=== PATIENT | male | born 1990 | race Caucasian/White ===

== ENCOUNTER 2023-09-30 20:56 | Inpatient (IN) | payer OTHER, SELFPAY ==
[2023-09-30 21:41] VITALS: BMI 47.1
[2023-09-30 21:43] VITALS: BP 162/104; PULSE 91; RESP 18; TEMP 36.7; O2SAT 98
[2023-09-30] MEDS: traZODone HCL 50 MG TABLET PO (22:43)
[2023-09-30] MEDS: Nicotine Polacrilex 2 MG GUM 4 MG BUCCAL (22:43)
--- NOTE | 2023-10-01 00:59 | PC.ADMIT ---
Patient is a 33 y.o. homeless male with a history of Schizophrenia, bipolar disorder, polysubstance abuse, hepatitis C and Htn. who presents to [facility] from [facility] for reported and recorded SI. Patient signed a CV with stated difficulty due to right hand pain which he showed RN. Right hand/knuckles are slightly swollen and bruised. Patient requesting a medic. Patient declined to state what happened to his hand but denies restraints. Patient was cooperative with weight, skin check, and vitals but as soon as RN asked a question about why he was here and if he is feeling suicidal he stated I lied, its all bullshit, im not suicidal . He states he lied so that he could come here and get sober living services. thats all I want . RN asked the patient about his living situation and family and patient states I dont want to be your friend, and I dont want to talk about anything else so lets just get on with it . Everything you need to know is in my chart . Patient declined to sign an releases for care. RN acclimated patient to unit and made sure patient was safe. RN was waiting for patient to fill out his menu and patient stopped half way through and states, I cant be around you and walked away. Looking through what medical records we have, they are consistent with his presentation. Very guarded, irritable, odd behavior. In the ED at [facility] patient was given Haldol, Ativan, and Benedryl IM due to agitation, ongoing resistance, and threatening behavior. Patient showered and is currently in his room and has not expressed any anger or violence on the unit. Sleep aid and nicotine replacement were ordered and administered. Will continue to monitor changes in behaviors and sleep pattern and will continue care with Behavioral health team in the morning.
[2023-10-01 08:00] VITALS: BP 121/78; PULSE 89; RESP 18; TEMP 36.3; O2SAT 97
[2023-10-01] MEDS: Multivitamin TABLET 1 TAB PO (08:37)
[2023-10-01] MEDS: Thiamine HCL 100 MG TABLET PO (08:37)
[2023-10-01] MEDS: Acetaminophen 325 MG TABLET 650 MG PO (08:37)
[2023-10-01] MEDS: Folic Acid 1 MG TABLET PO (08:37)
[2023-10-01] MEDS: LORazepam 1 MG TABLET PO (09:00)
--- NOTE | 2023-10-01 10:32 | P.HPPS_ITS ---
HPI Date of Service: 10/01/23 Chief Complaint: SI Sources of Information: patient interviewed, chart reviewed and crisis/core team assessment reviewed HPI Subjective Notes: Wheat Warning and Conditional Voluntary Narrative: Patient is a 33-year-old male with report of history of schizoaffective disorder cocaine opiate use disorder, possibly hep C, who presents after having made suicidal comment to peers saying he was going to jump off a parking garage; crisis note reports patient was endorsing auditory hallucinations that were telling him to harm himself and that he himself said he was suicidal; also reports that he endorsed suicide attempt a few weeks. Patient however denies this report. He says... I was having a conversation with some people, I was fucked up, I was in a bad spot and I said some fucked up things... I said lalo cidal stuff But it was just bullshit... Patient is not uncooperative however keeps the conversation to short answers. He denies that he is in any way suicidal. He denies any auditory hallucinations saying that he had them a long time ago only. Denies depression or anxiety and does not feel a need for medication. Says he struggles with heroin/fentanyl and cocaine use which he uses daily and wants help getting into a program and then sober housing. He does not want methadone or Suboxone or any other MH E. Patient said he was on Invega and Seroquel in the past but refuses it now saying he does not need it. He does agree to continue with Zyprexa which was started on admission. Past Psychiatric History: Patient reports past psychiatric hospitalizations, most recently a few weeks ago Crisis/ED reports past suicide attempt a few weeks ago History reports diagnosis of schizoaffective disorder/bipolar type however patient says this was long time ago and no longer has that diagnosis Medical Evaluation Reviewed: Hospitalist Renata Pending Reviewed labs from sending facility: Lytes, BUN/creatinine, LFTs WNL CBC grossly WNL with mild leukocytosis anemia UA unremarkable UDS positive for fentanyl and cannabis [facility] Medical History (Updated 10/01/23 @ 17:26 by William Becker MD) Cocaine use disorder Opioid use disorder Psychosis No known health problems No known health problems Surgical History No history of previous surgery Family History: Patient says he does not know Social History: Homeless for a few years; denies community support Substance History: Daily heroin/fentanyl and cocaine abuse; endorses history LSD; denies drinking alcohol daily, says only once in a while, most recently the night before this admission Trauma History: Deferred Diagnostics Vital Signs (24Hr): Vital Signs - 24 hr 09/30/23 21:43 10/01/23 08:00 Temperature 98.0 F 97.3 F Pulse Rate 91 89 Respiratory Rate 18 18 Blood Pressure 162/104 H 121/78 Pulse Oximetry 98 97 Oxygen Delivery Method Room Air Room Air BMI result Body Mass Index 47.1 Meds/Allergies Meds Home Medications Medication Instructions Recorded Confirmed Type Atarax 50 mg PO 09/30/23 History Desyrel 50 mg PO 09/30/23 History Lamictal 25 mg PO 09/30/23 History Wellbutrin SR 09/30/23 History Zyprexa 09/30/23 09/30/23 History benztropine 0.5 mg tablet 0.5 mg PO BID 09/30/23 History bupropion HCl 150 mg tablet,12 hr 150 mg PO QAM anxiety 09/30/23 History sustained-release ibuprofen 600 mg PO 09/30/23 History paliperidone 6 mg PO 09/30/23 History quetiapine 200 mg PO 09/30/23 History risperidone 3 mg PO 09/30/23 History Allergies Allergies Allergy/AdvReac Type Severity Reaction Status Date / Time azithromycin Allergy Unknown Verified 09/30/23 21:37 sulfamethoxazole Allergy Unknown Verified 09/30/23 21:39 [From Bactrim] trimethoprim [From Bactrim] Allergy Unknown Verified 09/30/23 21:39 Mental Status Exam Mental Status Exam Narrative: Pt is alert and oriented; behavior is cooperative and calm though little guarded; patient is not in distress; dressed in casual attire, obese, unkempt; mood is described as good and affect congruent; eye contact appropriate; Speech is normal rate, volume and prosody and not pressured; no psychomotor agitation/retardation present; thought process is organized and goal directed; Thought content is on aftercare; otherwise pertinent to relevant topics; no delusional thinking expressed; denies any SI/HI. Denies AVH and currently There is no evidence of perceptual disturbance. Patients insight and judgment impaired Assessment & Plan Assessment & Plan (1) Psychosis: Status: Acute Code(s): F29 - Unspecified psychosis not due to a substance or known physiological condition (2) Opioid use disorder: Status: Acute Code(s): F11.90 - Opioid use, unspecified, uncomplicated (3) Cocaine use disorder: Status: Acute Code(s): F14.10 - Cocaine abuse, uncomplicated Plan Patient is a 33-year-old male with report of history of schizoaffective disorder cocaine opiate use disorder, possibly hep C, who presents after having made suicidal comment to peers saying he was going to jump off a parking garage; crisis note reports patient was endorsing auditory hallucinations that were telling him to harm himself and that he himself said he was suicidal; also reports that he endorsed suicide attempt a few weeks. Patient however denies this report. He says... I was having a conversation with some people, I was fucked up, I was in a bad spot and I said some fucked up things... I said suicidal stuff But it was just bullshit... Patient is not uncooperative however keeps the conversation to short answers. He denies that he is in any way suicidal. He denies any auditory hallucinations saying that he had them a long time ago only. Denies depression or anxiety and does not feel a need for medication. Says he struggles with heroin/fentanyl and cocaine use which he uses daily and wants help getting into a program and then sober housing. He does not want methadone or Suboxone or any other MH E. Patient said he was on Invega and Seroquel in the past but refuses it now saying he does not need it. He does agree to continue with Zyprexa which was started on admission. Impression: Patient is a limited historian as his report to this senior grant writer is different than to crisis/ED staff where he reported AH and SI. That said, patient was also reportedly under the influence of opiates. ED report indicates history of schizoaffective disorder and has been prescribed Invega, Seroquel and Zyprexa; s taff called to pharmacy and patient no recent history of picking up any medication. At any rate he currently denies any AVH, SI depression or anxiety. He wants to get into a program for substance abuse and emphasizes his goal is sober housing. Currently agrees to remain on Zyprexa which was started on admission. -will monitor; if patient has a psychotic illness symptoms will likely emerge (unless Zyprexa 10 mg q.h.s. is sufficient) Plan: CV Q 15 minute checks Continue Zyprexa 10 mg q.h.s. Seek collateral Patient educated on: diagnosis, medication risk/benefits and substance abuse Informed Consent: understands Reason for continued inpatient stay Substantial Risk for: rapid decompensation Statement Statement: I have reviewed the history and physical and performed a pertinent examination on my patient. No changes have occurred unless specified. If the History and Physical was not performed prior to admission, the Hospitalist's service will be consulted for completing the admission phys ical. Time Spent With Patient Time: Total time managing care of this patient today ____ minutes.
[2023-10-01] MEDS: hydrOXYzine HCL 25 MG TABLET PO (13:48)
[2023-10-01] MEDS: Nicotine Polacrilex 2 MG GUM 4 MG BUCCAL (13:51)
--- NOTE | 2023-10-01 13:56 | HO.PM.IMCN ---
History of Present Illness Data of Consult Service Date: 10/01/23 Primary Care Provider: Nonstaff Physician HPI Reason for consult: Admission H&P Pt is a 33-year-old male with a PMH significant for?polysubstance use disorder and schizoaffective disorder who is admitted to [facility] psychiatry unit for increasing depression with SI with plan to jump off a parking garage. Apparently patient reported auditory hallucinations that were telling him to harm himself. Medical consult for admission H&P. ?Patient has no acute medical complaints at this time. States he's ?fine, fine, everything's fine?. Denies chest pain/pressure, palpitations. No shortness of breath. Denies fever, chills, nausea, vomiting, abdominal pain. No headache, acute vision changes. No changes to bowel bladder habits. Review of Systems Review of Systems: Patient has no acute medical complaints at this time [facility] Medical History No known health problems No known health problems Surgical History No history of previous surgery Social History Household Members: Unknown / Unable to assess Housing: Homeless Do you presently have visiting nurse or other home services: No Patient Tobacco Use Status: Current everyday Tobacco user Tobacco use type: Cigarette Smoked in Last 30 Days: Yes e-Cigarette/Vaping Use: Never Used Patient Interested in Nicotine Replacement: Yes Patient Given Instructions on How to Stop Smoking: Yes Date Education Initiated: 09/30/23 Second Hand Smoke Exposure: No Use of substances other than those prescribed or required for medical reasons: Refusing to respond Substance Use Type: Hallucinogens, Marijuana and Opiates Currently Displaying Signs/Symptoms of Drug Intoxication Withdrawal: No Spiritual Healthcare Practices: unknown Taoist Healthcare Practices: unknown Cultural Healthcare Practices: unknown Advance Directives: No Advance Directives Information Provided: No Do you have thoughts of harming others: None Do you have a plan to hurt others: No Plan Recently lost weight without trying: No How much weight loss: Unsure Eating poorly because of decreased appetite: No Nutrition screen score: 2 Nutrition Risks: No Nutritional Risk Poor oral hygiene: No Meds Allergies Allergy/AdvReac Type Severity Reaction Status Date / Time azithromycin Allergy Unknown Verified 09/30/23 21:37 sulfamethoxazole Allergy Unknown Verified 09/30/23 21:39 [From Bactrim] trimethoprim [From Bactrim] Allergy Unknown Verified 09/30/23 21:39 Active Medications: Current Medications Acetaminophen (Acetaminophen 325 Mg Tablet) 650 mg PO Q6H PRN PRN Reason: Headache/Pain Mild Scale (1-3) Last Admin: 10/01/23 08:37 Dose: 650 mg Al Hydroxide/Mg Hydroxide (Magnesium Hydrox/Alum Hydrox 30 Ml Oral.Susp) 30 ml PO Q6H PRN PRN Reason: Heartburn/Nausea Folic Acid (Folic Acid 1 Mg Tablet) 1 mg PO DAILY [facility] Last Admin: 10/01/23 08:37 Dose: 1 mg Hydroxyzine HCl (Hydroxyzine Hcl 25 Mg Tablet) 25 mg PO Q6H PRN PRN Reason: Anxiety Last Admin: 10/01/23 13:48 Dose: 25 mg Lorazepam (Lorazepam 1 Mg Tablet) 1 mg PO Q2H PRN PRN Reason: CIWA 6-10 Last Admin: 10/01/23 09:00 Dose: 1 mg Lorazepam (Lorazepam 1 Mg Tablet) 2 mg PO Q2H PRN PRN Reason: CIWA 11 and above Magnesium Hydroxide (Milk Of Magnesia 30 Ml Oral.Susp) 30 ml PO DAILY PRN PRN Reason: Constipation Multivitamins/Vitamin C (Multivitamin Tablet) 1 tab PO DAILY [facility] Last Admin: 10/01/23 08:37 Dose: 1 tab Nicotine (Nicotine 21 Mg Patch.Td24) 21 mg TRANSDERMA DAILY PRN PRN Reason: smoking cessation Nicotine Polacrilex (Nicotine Polacrilex 2 Mg Gum) 4 mg BUCCAL Q2H PRN PRN Reason: Nicotine Cravings Last Admin: 10/01/23 13:51 Dose: 4 mg Olanzapine (Olanzapine 5 Mg Tablet) 5 mg PO TID PRN PRN Reason: agitation Olanzapine (Olanzapine 10 Mg Tablet) 10 mg PO BEDTIME [facility] Last Admin: 10/01/23 05:26 Dose: Not Given Thiamine HCl (Thiamine Hcl 100 Mg Tablet) 100 mg PO DAILY [facility] Last Admin: 10/01/23 08:37 Dose: 100 mg Trazodone HCl (Trazodone Hcl 50 Mg Tablet) 50 mg PO BEDTIME MRX1 PRN PRN Reason: Insomnia Last Admin: 09/30/23 22:43 Dose: 50 mg Home Medications Medication Instructions Recorded Confirmed Last Taken Type Atarax 50 mg PO 09/30/23 Unknown History Desyrel 50 mg PO 09/30/23 Unknown History Lamictal 25 mg PO 09/30/23 Unknown History Wellbutrin SR 09/30/23 Unknown History Zyprexa 09/30/23 09/30/23 Unknown History benztropine 0.5 mg tablet 0.5 mg PO BID 09/30/23 Unknown History bupropion HCl 150 mg tablet,12 hr 150 mg PO QAM anxiety 09/30/23 Unknown History sustained-release ibuprofen 600 mg PO 09/30/23 Unknown History paliperidone 6 mg PO 09/30/23 Unknown History quetiapine 200 mg PO 09/30/23 Unknown History risperidone 3 mg PO 09/30/23 Unknown History Physical Exam Vital Signs and Narrative: Vital Signs: Last Vital Signs Temp 97.3 F 10/01/23 08:00 Pulse 89 10/01/23 08:00 Resp 18 10/01/23 08:00 BP 121/78 10/01/23 08:00 Pulse Ox 97 10/01/23 08:00 O2 Del Method Room Air 10/01/23 08:00 BMI result Body Mass Index 47.1 General: AOx3, no acute distress Resp: CTA bilaterally CVS: S1, S2, RRR GI: +BS, NT, no distention Skin: Warm, dry Neuro: Cranial nerves II-XII grossly intact bilaterally. Motor grossly intact bilaterally Extremities: No edema Psych: Appropriate affect Assessment and Plan (1) Medical clearance for psychiatric admission: Status: Acute Plan Pt is a 33-year-old male with a PMH significant for?polysubstance use disorder and schizoaffective disorder who is admitted to [facility] psychiatry unit for increasing depression with SI with plan to jump off a parking garage. Apparently patient reported auditory hallucinations that were telling him to harm himself. Medical consult for admission H&P. ?Patient has no acute medical complaints at this time. Mood disorder Plan as per Psychiatry Patient reports no acute medical complaints or chronic medical conditions. Thank you for allowing us to participate in the care of this patient. Signing off at this time. Please re-consult if any acute complaints or issues arise.
[2023-10-01 18:00] VITALS: RESP 18
[2023-10-01] MEDS: traZODone HCL 50 MG TABLET PO (20:26)
[2023-10-01] MEDS: OLANZapine 10 MG TABLET PO (20:26)
[2023-10-02 08:00] VITALS: RESP 18
[2023-10-02] MEDS: Folic Acid 1 MG TABLET PO (09:13)
[2023-10-02] MEDS: Multivitamin TABLET 1 TAB PO (09:13)
[2023-10-02] MEDS: hydrOXYzine HCL 25 MG TABLET PO ×2 (09:13→21:05)
[2023-10-02] MEDS: OLANZapine 5 MG TABLET PO (09:13)
[2023-10-02] MEDS: Thiamine HCL 100 MG TABLET PO (09:13)
--- NOTE | 2023-10-02 11:04 | P.PNPSI_ITS ---
Subjective Subjective Date of Service: 10/02/23 Reason For Visit: SI Interim History: met with patient; discussed with team Patient remains isolated, mostly in bed; overall friendly and polite on approach however remains superficial. Denies all psychiatric symptoms, no depression, anxiety, auditory hallucinations or SI. Black Topper asked about emergency room note that recorded patient saying auditory hallucinations were telling him to hurt himself. Patient says no that has not true at all that has a lie... Mental Status Exam Mental Status Exam Narrative: Pt is alert and oriented; behavior is superficially cooperative; calm, polite; remains a little guarded; patient is not in distress; dressed in casual attire, obese, unkempt; mood is described as good and affect congruent; eye contact appropriate; Speech is normal rate, volume and prosody and not pressured; no psychomotor agitation/retardation present; thought process is organized and goal directed; Thought content is on aftercare; otherwise pertinent to relevant topics; no delusional thinking expressed; denies any SI/HI. Denies AVH and currently There is no evidence of perceptual disturbance. Patients insight and judgment impaired Diagnostics Vital Signs (24Hr): Vital Signs - 24 hr 10/01/23 18:00 10/02/23 08:00 Respiratory Rate 18 18 BMI result Body Mass Index 47.1 Medications Medications Current Medications Acetaminophen (Acetaminophen 325 Mg Tablet) 650 mg PO Q6H PRN PRN Reason: Headache/Pain Mild Scale (1-3) Last Admin: 10/01/23 08:37 Dose: 650 mg Al Hydroxide/Mg Hydroxide (Magnesium Hydrox/Alum Hydrox 30 Ml Oral.Susp) 30 ml PO Q6H PRN PRN Reason: Heartburn/Nausea Folic Acid (Folic Acid 1 Mg Tablet) 1 mg PO DAILY [facility] Last Admin: 10/02/23 09:13 Dose: 1 mg Hydroxyzine HCl (Hydroxyzine Hcl 25 Mg Tablet) 25 mg PO Q6H PRN PRN Reason: Anxiety Last Admin: 10/02/23 09:13 Dose: 25 mg Magnesium Hydroxide (Milk Of Magnesia 30 Ml Oral.Susp) 30 ml PO DAILY PRN PRN Reason: Constipation Multivitamins/Vitamin C (Multivitamin Tablet) 1 tab PO DAILY [facility] Last Admin: 10/02/23 09:13 Dose: 1 tab Nicotine (Nicotine 21 Mg Patch.Td24) 21 mg TRANSDERMA DAILY PRN PRN Reason: smoking cessation Nicotine Polacrilex (Nicotine Polacrilex 2 Mg Gum) 4 mg BUCCAL Q2H PRN PRN Reason: Nicotine Cravings Last Admin: 10/01/23 13:51 Dose: 4 mg Olanzapine (Olanzapine 5 Mg Tablet) 5 mg PO TID PRN PRN Reason: agitation Last Admin: 10/02/23 09:13 Dose: 5 mg Olanzapine (Olanzapine 10 Mg Tablet) 10 mg PO BEDTIME [facility] Last Admin: 10/01/23 20:26 Dose: 10 mg Thiamine HCl (Thiamine Hcl 100 Mg Tablet) 100 mg PO DAILY [facility] Last Admin: 10/02/23 09:13 Dose: 100 mg Trazodone HCl (Trazodone Hcl 50 Mg Tablet) 50 mg PO BEDTIME MRX1 PRN PRN Reason: Insomnia Last Admin: 10/01/23 20:26 Dose: 50 mg Allergies Allergies Allergy/AdvReac Type Severity Reaction Status Date / Time azithromycin Allergy Unknown Verified 09/30/23 21:37 sulfamethoxazole Allergy Unknown Verified 09/30/23 21:39 [From Bactrim] trimethoprim [From Bactrim] Allergy Unknown Verified 09/30/23 21:39 Assessment & Plan Assessment & Plan (1) Psychosis: Status: Acute Code(s): F29 - Unspecified psychosis not due to a substance or known physiological condition (2) Opioid use disorder: Status: Acute Code(s): F11.90 - Opioid use, unspecified, uncomplicated (3) Cocaine use disorder: Status: Acute Code(s): F14.10 - Cocaine abuse, uncomplicated Plan Patient is a 33-year-old male with report of history of schizoaffective disorder cocaine opiate use disorder, possibly hep C, who presents after having made suicidal comment to peers saying he was going to jump off a parking garage; crisis note reports patient was endorsing auditory hallucinations that were telling him to harm himself and that he himself said he was suicidal; also reports that he endorsed suicide attempt a few weeks. Patient however denies this report. He says... I was having a conversation with some people, I was fucked up, I was in a bad spot and I said some fucked up things... I said suicidal stuff But it was just bullshit... Patient is not uncooperative however keeps the conversation to short answers. He denies that he is in any way suicidal. He denies any auditory hallucinations saying that he had them a long time ago only. Denies depression or anxiety and does not feel a need for medication. Says he struggles with heroin/fentanyl and cocaine use which he uses daily and wants help getting into a program and then sober housing. He does not want methadone or Suboxone or any other MH E. Patient said he was on Invega and Seroquel in the past but refuses it now saying he does not need it. He does agree to continue with Zyprexa which was started on admission. Impression: Patient is a limited historian as his report to this script writer is different than to crisis/ED staff where he reported AH and SI. That said, patient was also reportedly under the influence of opiates. ED report indicates history of schizoaffective disorder and has been prescribed Invega, Seroquel and Zyprexa; staff called to pharmacy and patient no recent history of picking up any medication. At any rate he currently denies any AVH, SI depression or anxiety. He wants to get into a program for substance abuse and emphasizes his goal is sober housing. Currently agrees to remain on Zyprexa which was started on admission. -will monitor; if patient has a psychotic illness symptoms will likely emerge (unless Zyprexa 10 mg q.h.s. is sufficient) Hospital course: 10/01 Patient remains isolated, mostly in bed; overall friendly and polite on approach however remains superficial. Denies all psychiatric symptoms, no depression, anxiety, auditory hallucinations or SI. Black Topper asked about emergency room note that recorded patient saying auditory hallucinations were telling him to hurt himself. Patient says no that has not true at all that has a lie... -taking Zyprexa 10 mg q.h.s. -he expresses gratitude for help getting into a substance abuse program and looks forward to talking with social work tomorrow Plan: CV Q 15 minute checks Continue Zyprexa 10 mg q.h.s. Seek collateral Patient educated on: diagnosis, medication risk/benefits, substance abuse and therapeutic strategies Informed Consent: understands, does not understand and further education needed Reason for continued inpatient stay Substantial Risk for: rapid decompensation Time Spent With Patient Time: Total time managing care of this patient today ____ minutes.
[2023-10-02] MEDS: traZODone HCL 50 MG TABLET PO (21:05)
[2023-10-02] MEDS: OLANZapine 10 MG TABLET PO (21:05)
[2023-10-03 08:30] VITALS: RESP 18
[2023-10-03] MEDS: Folic Acid 1 MG TABLET PO (08:50)
[2023-10-03] MEDS: Thiamine HCL 100 MG TABLET PO (08:50)
[2023-10-03] MEDS: Multivitamin TABLET 1 TAB PO (08:50)
--- NOTE | 2023-10-03 11:30 | P.PNPSI_ITS ---
Subjective Subjective Date of Service: 10/03/23 Reason For Visit: SI Subjective Notes: Conditional Voluntary Interim History: Reviewed with Dr. Barkley. Pt reports feeling okay today; pt stated, I was on drugs and said some messed up shit. I'm not suicidal. I'm open to go to a substance abuse program but I want to go back to [place] . In team, staff reported pt making a comment last evening regarding concerns of someone touching his testicle . T/W asked patient regarding this statement; pt stated, I'm a spiritual person. I felt something touch my testicle so I thought it was an Alien, not a ghost. I believe in Aliens . pt denies SI/HI/VH/AH. Medication Compliance: Yes Side effects from medications: No Attending Groups: No Review of Systems Constitutional: Reports as per HPI Eyes: Reports as per HPI Reports as per HPI Cardiovascular: Denies as per HPI Respiratory: Reports as per HPI Gastrointestinal: Reports as per HPI Genitourinary: Reports as per HPI Musculoskeletal: Reports as per HPI Skin/Breast: Reports as per HPI Reports as per HPI Psychiatric: Reports as per HPI Endocrine: Reports as per HPI Hematologic/Lymphatic: Reports as per HPI Allergic/Immunologic: Reports as per HPI Mental Status Exam Mental Status Exam Narrative: Pt is alert and oriented; behavior is calm; dressed in casual attire; mood is described as okay ; eye contact appropriate; Speech is normal rate, volume and prosody and not pressured; thought process is goal directed; Thought content is on tx; Pt believes Alien was touching him last evening ; denies SI/HI/VH/AH. Diagnostics Vital Signs (24Hr): Vital Signs - 24 hr 10/03/23 08:30 Respiratory Rate 18 BMI result Body Mass Index 47.1 Medications Medications Current Medications Acetaminophen (Acetaminophen 325 Mg Tablet) 650 mg PO Q6H PRN PRN Reason: Headache/Pain Mild Scale (1-3) Last Admin: 10/01/23 08:37 Dose: 650 mg Al Hydroxide/Mg Hydroxide (Magnesium Hydrox/Alum Hydrox 30 Ml Oral.Susp) 30 ml PO Q6H PRN PRN Reason: Heartburn/Nausea Folic Acid (Folic Acid 1 Mg Tablet) 1 mg PO DAILY ROSMERY Last Admin: 10/03/23 08:50 Dose: 1 mg Hydroxyzine HCl (Hydroxyzine Hcl 25 Mg Tablet) 25 mg PO Q6H PRN PRN Reason: Anxiety Last Admin: 10/02/23 21:05 Dose: 25 mg Magnesium Hydroxide (Milk Of Magnesia 30 Ml Oral.Susp) 30 ml PO DAILY PRN PRN Reason: Constipation Multivitamins/Vitamin C (Multivitamin Tablet) 1 tab PO DAILY [facility] Last Admin: 10/03/23 08:50 Dose: 1 tab Nicotine (Nicotine 21 Mg Patch.Td24) 21 mg TRANSDERMA DAILY PRN PRN Reason: smoking cessation Nicotine Polacrilex (Nicotine Polacrilex 2 Mg Gum) 4 mg BUCCAL Q2H PRN PRN Reason: Nicotine Cravings Last Admin: 10/01/23 13:51 Dose: 4 mg Olanzapine (Olanzapine 5 Mg Tablet) 5 mg PO TID PRN PRN Reason: agitation Last Admin: 10/02/23 09:13 Dose: 5 mg Olanzapine (Olanzapine 10 Mg Tablet) 10 mg PO BEDTIME ROSMERY Last Admin: 10/02/23 21:05 Dose: 10 mg Thiamine HCl (Thiamine Hcl 100 Mg Tablet) 100 mg PO DAILY [facility] Last Admin: 10/03/23 08:50 Dose: 100 mg Trazodone HCl (Trazodone Hcl 50 Mg Tablet) 50 mg PO BEDTIME MRX1 PRN PRN Reason: Insomnia Last Admin: 10/02/23 21:05 Dose: 50 mg Allergies Allergies Allergy/AdvReac Type Severity Reaction Status Date / Time azithromycin Allergy Unknown Verified 09/30/23 21:37 sulfamethoxazole Allergy Unknown Verified 09/30/23 21:39 [From Bactrim] trimethoprim [From Bactrim] Allergy Unknown Verified 09/30/23 21:39 Assessment & Plan Assessment & Plan (1) Psychosis: Status: Acute Code(s): F29 - Unspecified psychosis not due to a substance or known physiological condition (2) Opioid use disorder: Status: Acute Code(s): F11.90 - Opioid use, unspecified, uncomplicated (3) Cocaine use disorder: Status: Acute Code(s): F14.10 - Cocaine abuse, uncomplicated Plan Patient is a 33-year-old male with report of history of schizoaffective disorder cocaine opiate use disorder, possibly hep C, who presents after having made suicidal comment to peers saying he was going to jump off a parking garage; crisis note reports patient was endorsing auditory hallucinations that were telling him to harm himself and that he himself said he was suicidal; also reports that he endorsed suicide attempt a few weeks. Patient however denies this report. He says... I was having a conversation with some people, I was fucked up, I was in a bad spot and I said some fucked up things... I said suicidal stuff But it was just bullshit... Patient is not uncooperative however keeps the conversation to short answers. He denies that he is in any way suicidal. He denies any auditory hallucinations saying that he had them a long time ago only. Denies depression or anxiety and does not feel a need for medication. Says he struggles with heroin/fentanyl and cocaine use which he uses daily and wants help getting into a program and then sober housing. He does not want methadone or Suboxone or any other MH E. Patient said he was on Invega and Seroquel in the past but refuses it now saying he does not need it. He does agree to continue with Zyprexa which was started on admission. Impression: Patient is a limited historian as his report to this instructional writer is different than to crisis/ED staff where he reported AH and SI. That said, patient was also reportedly under the influence of opiates. ED report indicates history of schizoaffective disorder and has been prescribed Invega, Seroquel and Zyprexa; staff called to pharmacy and patient no recent history of picking up any medication. At any rate he currently denies any AVH, SI depression or anxiety. He wants to get into a program for substance abuse and emphasizes his goal is sober housing. Currently agrees to remain on Zyprexa which was started on admission. -will monitor; if patient has a psychotic illness symptoms will likely emerge (unless Zyprexa 10 mg q.h.s. is sufficient) Hospital course: 10/01 Patient remains isolated, mostly in bed; overall friendly and polite on approach however remains superficial. Denies all psychiatric symptoms, no depr ession, anxiety, auditory hallucinations or SI. South Asian History Professor asked about emergency room note that recorded patient saying auditory hallucinations were telling him to hurt himself. Patient says no that has not true at all that has a lie... -taking Zyprexa 10 mg q.h.s. -he expresses gratitude for help getting into a substance abuse program and looks forward to talking with social work tomorrow 10/02: continue current tx plan. Plan: CV Q 15 minute checks Continue Zyprexa 10 mg q.h.s. Seek collateral Patient educated on: diagnosis, medication risk/benefits and therapeutic strategies Informed Consent: understands Reason for continued inpatient stay Substantial Risk for: med/psych decompensation Time Spent With Patient Time: Total time managing care of this patient today _20___ minutes.
[2023-10-03 20:15] VITALS: BP 135/77; PULSE 98; RESP 18; TEMP 36.4; O2SAT 97
[2023-10-03] MEDS: OLANZapine 10 MG TABLET PO (21:33)
[2023-10-03] MEDS: traZODone HCL 50 MG TABLET PO (21:33)
[2023-10-04 06:00] VITALS: RESP 18
--- NOTE | 2023-10-04 08:39 | HO.PSYCHPN ---
Subjective Subjective Date of Service: 10/04/23 Reason For Visit: SI Subjective Notes: 3 Day Interim History: Reviewed with Dr. Barkley. Laying in bed. keeping to self. When T/W asked to speak to patient. pt began yelling, pt stated, I feel perfect! I just want to go home! You have no grounds to fucking hold me! Get out of my fucking room! T/W left patient's room. pt signed 3 day which is up on . Medication Compliance: Yes Side effects from medications: No Review of Systems Constitutional: Reports as per HPI Eyes: Reports as per HPI Reports as per HPI Cardiovascular: Denies as per HPI Respiratory: Reports as per HPI Gastrointestinal: Reports as per HPI Genitourinary: Reports as per HPI Musculoskeletal: Reports as per HPI Skin/Breast: Reports as per HPI Reports as per HPI Psychiatric: Reports as per HPI Endocrine: Reports as per HPI Hematologic/Lymphatic: Reports as per HPI Allergic/Immunologic: Reports as per HPI Mental Status Exam Mental Status Exam Narrative: Pt is alert and oriented; behavior is agitated, guarded, yelling; dressed in casual attire; mood is described as perfect ; eye contact appropriate; Speech is normal rate, yelling at times; thought process is goal directed; Thought content is on discharge; denies SI/HI/VH/AH. Diagnostics Vital Signs (24Hr): Vital Signs - 24 hr 10/03/23 20:15 Temperature 97.5 F Pulse Rate 98 Respiratory Rate 18 Blood Pressure 135/77 Pulse Oximetry 97 Oxygen Delivery Method Room Air BMI result Body Mass Index 47.1 Medications Medications Current Medications Acetaminophen (Acetaminophen 325 Mg Tablet) 650 mg PO Q6H PRN PRN Reason: Headache/Pain Mild Scale (1-3) Last Admin: 10/01/23 08:37 Dose: 650 mg Al Hydroxide/Mg Hydroxide (Magnesium Hydrox/Alum Hydrox 30 Ml Oral.Susp) 30 ml PO Q6H PRN PRN Reason: Heartburn/Nausea Folic Acid (Folic Acid 1 Mg Tablet) 1 mg PO DAILY ROSMERY Last Admin: 10/03/23 08:50 Dose: 1 mg Hydroxyzine HCl (Hydroxyzine Hcl 25 Mg Tablet) 25 mg PO Q6H PRN PRN Reason: Anxiety Last Admin: 10/02/23 21:05 Dose: 25 mg Magnesium Hydroxide (Milk Of Magnesia 30 Ml Oral.Susp) 30 ml PO DAILY PRN PRN Reason: Constipation Multivitamins/Vitamin C (Multivitamin Tablet) 1 tab PO DAILY ROSMERY Last Admin: 10/03/23 08:50 Dose: 1 tab Nicotine (Nicotine 21 Mg Patch.Td24) 21 mg TRANSDERMA DAILY PRN PRN Reason: smoking cessation Nicotine Polacrilex (Nicotine Polacrilex 2 Mg Gum) 4 mg BUCCAL Q2H PRN PRN Reason: Nicotine Cravings Last Admin: 10/01/23 13:51 Dose: 4 mg Olanzapine (Olanzapine 5 Mg Tablet) 5 mg PO TID PRN PRN Reason: agitation Last Admin: 10/02/23 09:13 Dose: 5 mg Olanzapine (Olanzapine 10 Mg Tablet) 10 mg PO BEDTIME ROSMERY Last Admin: 10/03/23 21:33 Dose: 10 mg Thiamine HCl (Thiamine Hcl 100 Mg Tablet) 100 mg PO DAILY ROSMERY Last Admin: 10/03/23 08:50 Dose: 100 mg Trazodone HCl (Trazodone Hcl 50 Mg Tablet) 50 mg PO BEDTIME MRX1 PRN PRN Reason: Insomnia Last Admin: 10/03/23 21:33 Dose: 50 mg Allergies Allergies Allergy/AdvReac Type Severity Reaction Status Date / Time azithromycin Allergy Unknown Verified 09/30/23 21:37 sulfamethoxazole Allergy Unknown Verified 09/30/23 21:39 [From Bactrim] trimethoprim [From Bactrim] Allergy Unknown Verified 09/30/23 21:39 Assessment & Plan Assessment & Plan (1) Psychosis: Status: Acute Code(s): F29 - Unspecified psychosis not due to a substance or known physiological condition (2) Opioid use disorder: Status: Acute Code(s): F11.90 - Opioid use, unspecified, uncomplicated (3) Cocaine use disorder: Status: Acute Code(s): F14.10 - Cocaine abuse, uncomplicated Plan Patient is a 33-year-old male with report of history of schizoaffective disorder cocaine opiate use disorder, possibly hep C, who presents after having made suicidal comment to peers saying he was going to jump off a parking garage; crisis note reports patient was endorsing auditory hallucinations that were telling him to harm himself and that he himself said he was suicidal; also reports that he endorsed suicide attempt a few weeks. Patient however denies this report. He says... I was having a conversation with some people, I was fucked up, I was in a bad spot and I said some fucked up things... I said suicidal stuff But it was just bullshit... Patient is not uncooperative however keeps the conversation to short answers. He denies that he is in any way suicidal. He denies any auditory hallucinations saying that he had them a long time ago only. Denies depression or anxiety and does not feel a need for medication. Says he struggles with heroin/fentanyl and cocaine use which he uses daily and wants help getting into a program and then sober housing. He does not want methadone or Suboxone or any other MH E. Patient said he was on Invega and Seroquel in the past but refuses it now saying he does not need it. He does agree to continue with Zyprexa which was started on admission. Impression: Patient is a limited historian as his report to this bond underwriter is different than to crisis/ED staff where he reported AH and SI. That said, patient was also reportedly under the influence of opiates. ED report indicates history of schizoaffective disorder and has been prescribed Invega, Seroquel and Zyprexa; staff called to pharmacy and patient no recent history of picking up any medication. At any rate he currently denies any AVH, SI depression or anxiety. He wants to get into a program for substance abuse and emphasizes his goal is sober housing. Currently agrees to remain on Zyprexa which was started on admission. -will monitor; if patient has a psychotic illness symptoms will likely emerge (unless Zyprexa 10 mg q.h.s. is sufficient) Hospital course: 10/01 Patient remains isolated, mostly in bed; overall friendly and polite on approach however remains superficial. Denies all psychiatric symptoms, no depression, anxiety, auditory hallucinations or SI. Computer Analyst asked about emergency room note that recorded patient saying auditory hallucinations were telling him to hurt himself. Patient says no that has not true at all that has a lie... -taking Zyprexa 10 mg q.h.s. -he expresses gratitude for help getting into a substance abuse program and looks forward to talking with social work tomorrow 10/02: continue current tx plan. 10/03: Laying in bed. keeping to self. When T/W asked to speak to patient. pt began yelling, pt stated, I feel perfect! I just want to go home! You have no grounds to fucking hold me! Get out of my fucking room! T/W left patient's room. pt signed 3 day which is up on . Plan: CV Q 15 minute checks Continue Zyprexa 10 mg q.h.s. Seek collateral Patient educated on: other (pt refused to meet with T/W.) Informed Consent: further education needed Reason for continued inpatient stay Substantial Risk for: med/psych decompensation Time Spent With Patient Time: Total time managing care of this patient today _20___ minutes.
[2023-10-04] MEDS: Folic Acid 1 MG TABLET PO (10:22)
[2023-10-04] MEDS: Multivitamin TABLET 1 TAB PO (10:22)
[2023-10-04] MEDS: Thiamine HCL 100 MG TABLET PO (10:23)
[2023-10-04] MEDS: OLANZapine 5 MG TABLET PO (14:33)
[2023-10-04] MEDS: OLANZapine ODT 10 MG TAB.RAPDIS 20 MG TRANSLINGU (21:54)
[2023-10-04] MEDS: traZODone HCL 50 MG TABLET PO (21:55)
[2023-10-05 06:00] VITALS: RESP 16
[2023-10-05] MEDS: OLANZapine 5 MG TABLET PO (08:53)
[2023-10-05] MEDS: Multivitamin TABLET 1 TAB PO (08:53)
[2023-10-05] MEDS: Folic Acid 1 MG TABLET PO (08:53)
[2023-10-05] MEDS: Thiamine HCL 100 MG TABLET PO (08:53)
--- NOTE | 2023-10-05 16:10 | HO.PSYCHPN ---
Subjective Subjective Date of Service: 10/05/23 Reason For Visit: SI Subjective Notes: 3 Day (10/06/23) Healthcare Proxy: No Guardianship: No Medical Problems Affecting Mental Status: No Interim History: Pt able to meet with Maryann Waters LCSW and tw to discuss discharge. Asks to return to [place] Asks to continue medications and send prescriptions to [facility]. Plans to return to his area where he has connections for housing/shelters No overt sx of psychosis, carlos, SI, HI or behaviors of concern. Pt not wanting to remain in patient and continue current treatment, however accepted feedback that he seems to have improved with medication treatment and he is willing to continue. No irritability, paranoia or behavioral sx present today. Medication Compliance: Yes Side effects from medications: No Attending Groups: Intermittent Review of Systems Acute medical concerns: No Medical Review of Systems: unchanged Review of Systems Review of Systems Yes all other systems are reviewed and are negative Mental Status Exam Mental Status Exam Patient Appearance: Appropriate Patient Orientation: Person, Place, Time and Situation Level of Consciousness: Alert Patient Behavior: Talkative and Good Eye Contact Mood Description: Apprehensive Affect Description: Apprehensive Patient Cognition Impaired: No Ability to Follow Directions: Fair Speech Pattern: Spontaneous Speech Memory Description: Intact Delusions: Paranoid Ideation Thought Process: Distracted Thought Content: positive for Circumstantial, positive for Suicidal Ideation (denies) and positive for Homicidal Ideation (denies) Depressive Symptoms: Thoughts of /Suicide (denies) Abnormal Motor Activity Signs and Symptoms: Restlessness Judgement: Good Diagnostics Vital Signs (24Hr): Vital Signs - 24 hr 10/05/23 06:00 Respiratory Rate 16 BMI result Body Mass Index 47.1 Medications Medications Current Medications Acetaminophen (Acetaminophen 325 Mg Tablet) 650 mg PO Q6H PRN PRN Reason: Headache/Pain Mild Scale (1-3) Last Admin: 10/01/23 08:37 Dose: 650 mg Al Hydroxide/Mg Hydroxide (Magnesium Hydrox/Alum Hydrox 30 Ml Oral.Susp) 30 ml PO Q6H PRN PRN Reason: Heartburn/Nausea Folic Acid (Folic Acid 1 Mg Tablet) 1 mg PO DAILY ROSMERY Last Admin: 10/05/23 08:53 Dose: 1 mg Hydroxyzine HCl (Hydroxyzine Hcl 25 Mg Tablet) 25 mg PO Q6H PRN PRN Reason: Anxiety Last Admin: 10/02/23 21:05 Dose: 25 mg Magnesium Hydroxide (Milk Of Magnesia 30 Ml Oral.Susp) 30 ml PO DAILY PRN PRN Reason: Constipation Multivitamins/Vitamin C (Multivitamin Tablet) 1 tab PO DAILY [facility] Last Admin: 10/05/23 08:53 Dose: 1 tab Nicotine (Nicotine 21 Mg Patch.Td24) 21 mg TRANSDERMA DAILY PRN PRN Reason: smoking cessation Nicotine Polacrilex (Nicotine Polacrilex 2 Mg Gum) 4 mg BUCCAL Q2H PRN PRN Reason: Nicotine Cravings Last Admin: 10/01/23 13:51 Dose: 4 mg Olanzapine (Olanzapine 5 Mg Tablet) 5 mg PO TID PRN PRN Reason: agitation Last Admin: 10/05/23 08:53 Dose: 5 mg Olanzapine (Olanzapine Odt 10 Mg Tab.Rapdis) 20 mg TRANSLINGU BEDTIME ROSMERY Last Admin: 10/04/23 21:54 Dose: 20 mg Thiamine HCl (Thiamine Hcl 100 Mg Tablet) 100 mg PO DAILY [facility] Last Admin: 10/05/23 08:53 Dose: 100 mg Trazodone HCl (Trazodone Hcl 50 Mg Tablet) 50 mg PO BEDTIME MRX1 PRN PRN Reason: Insomnia Last Admin: 10/04/23 21:55 Dose: 50 mg Allergies Allergies Allergy/AdvReac Type Severity Reaction Status Date / Time azithromycin Allergy Unknown Verified 09/30/23 21:37 sulfamethoxazole Allergy Unknown Verified 09/30/23 21:39 [From Bactrim] trimethoprim [From Bactrim] Allergy Unknown Verified 09/30/23 21:39 Assessment & Plan Assessment & Plan (1) Psychosis: Status: Acute Code(s): F29 - Unspecified psychosis not due to a substance or known physiological condition (2) Opioid use disorder: Status: Acute Code(s): F11.90 - Opioid use, unspecified, uncomplicated (3) Cocaine use disorder: Status: Acute Code(s): F14.10 - Cocaine abuse, uncomplicated Plan Patient is a 33-year-old male with report of history of schizoaffective disorder cocaine opiate use disorder, possibly hep C, who presents after having made suicidal comment to peers saying he was going to jump off a parking garage; crisis note reports patient was endorsing auditory hallucinations that were telling him to harm himself and that he himself said he was suicidal; also reports that he endorsed suicide attempt a few weeks. Patient however denies this report. He says... I was having a conversation with some people, I was fucked up, I was in a bad spot and I said some fucked up things... I said suicidal stuff But it was just bullshit... Patient is not uncooperative however keeps the conversation to short answers. He denies that he is in any way suicidal. He denies any auditory hallucinations saying that he had them a long time ago only. Denies depression or anxiety and does not feel a need for medication. Says he struggles with heroin/fentanyl and cocaine use which he uses daily and wants help getting into a program and then sober housing. He does not want methadone or Suboxone or any other MH E. Patient said he was on Invega and Seroquel in the past but refuses it now saying he does not need it. He does agree to continue with Zyprexa which was started on admission. Impression: Patient is a limited historian as his report to this field underwriter is different than to crisis/ED staff where he reported AH and SI. That said, patient was also reportedly under the influence of opiates. ED report indicates history of schizoaffective disorder and has been prescribed Invega, Seroquel and Zyprexa; staff called to pharmacy and patient no recent history of picking up any medication. At any rate he currently denies any AVH, SI depression or anxiety. He wants to get into a program for substance abuse and emphasizes his goal is sober housing. Currently agrees to remain on Zyprexa which was started on admission. -will monitor; if patient has a psychotic illness symptoms will likely emerge (unless Zyprexa 10 mg q.h.s. is sufficient) Hospital course: 10/01 Patient remains isolated, mostly in bed; overall friendly and polite on approach however remains superficial. Denies all psychiatric symptoms, no depression, anxiety, auditory hallucinations or SI. Chairperson Anesthesiology asked about emergency room note that recorded patient saying auditory hallucinations were telling him to hurt himself. Patient says no that has not true at all that has a lie... -taking Zyprexa 10 mg q.h.s. -he expresses gratitude for help getting into a substance abuse program and looks forward to talking with social work tomorrow 10/02: continue current tx plan. 10/03: Laying in bed. keeping to self. When T/W asked to speak to patient. pt began yelling, pt stated, I feel perfect! I just want to go home! You have no grounds to fucking hold me! Get out of my fucking room! T/W left patient's room. pt signed 3 day which is up on . 10/05/23: Pt met with team, discussed discharge plans. Will leave on TDN on 10/06/23. Plan: CV Q 15 minute checks Continue Zyprexa 10 mg q.h.s. Seek collateral Informed Consent: understands Reason for continued inpatient stay Substantial Risk for: rapid decompensation Time Spent With Patient Time: Total time managing care of this patient today ____ minutes.
[2023-10-05] MEDS: OLANZapine ODT 10 MG TAB.RAPDIS 20 MG TRANSLINGU (20:16)
[2023-10-05] MEDS: Ibuprofen 800 MG TABLET PO (20:16)
[2023-10-05] MEDS: traZODone HCL 50 MG TABLET PO (20:18)
[2023-10-06] MEDS: OLANZapine 5 MG TABLET PO (08:04)
[2023-10-06] MEDS: Multivitamin TABLET 1 TAB PO (08:04)
[2023-10-06] MEDS: Folic Acid 1 MG TABLET PO (08:04)
[2023-10-06] MEDS: Thiamine HCL 100 MG TABLET PO (08:04)
[2023-10-06 08:34] VITALS: RESP 18
--- NOTE | 2023-10-06 12:57 | P.DS_ITS ---
DS: Providers Provider Date of Service: 10/06/23 Date of admission: 09/30/23 20:56 Date of discharge: 10/06/23 Primary care physician: Nonstaff Physician Admitting clinician: William Becker Attending physician on admission: William Becker Consults: 09/30/23 22:17 Consult to Hospitalist Routine Comment: Consulting Provider: Hospitalist Reason For Exam: admission physical Attending physician on discharge: Joce Barkley Discharging clinician: Jennifer Crane DS: Diagnosis Discharge Diagnosis (1) Psychosis: Status: Acute (2) Opioid use disorder: Status: Acute (3) Cocaine use disorder: Status: Acute DS: Medications Discharge Medications Home Medications: Previous Rx's Medication Instructions Recorded benztropine 0.5 mg tablet 0.5 mg PO BID #30 tabs 10/05/23 folic acid 1 mg tablet 1 mg PO DAILY #30 tabs 10/05/23 multivitamin (Daily-Linden tablet) 1 tab PO DAILY #30 tabs 10/05/23 nicotine (polacrilex) 2 mg gum 4 mg buccal Q2H PRN Nicotine 10/05/23 Cravings #100 ea olanzapine 10 mg disintegrating 20 mg (2 x 10 mg) translingual 10/05/23 tablet BEDTIME #15 tabs thiamine mononitrate (vit B1) 100 100 mg PO DAILY #30 tabs 10/05/23 mg tablet trazodone 50 mg tablet 50 mg PO BEDTIME MRX1 PRN Insomnia 10/05/23 #15 tabs Mental Status Exam Mental Status Exam Patient Appearance: Appropriate Patient Orientation: Person, Place, Time and Situation Level of Consciousness: Alert Patient Behavior: Talkative and Good Eye Contact Mood Description: Apprehensive Affect Description: Apprehensive Patient Cognition Impaired: No Ability to Follow Directions: Fair Speech Pattern: Spontaneous Speech Memory Description: Intact Delusions: Paranoid Ideation Thought Process: Distracted Thought Content: positive for Circumstantial, positive for Suicidal Ideation (denies) and positive for Homicidal Ideation (denies) Depressive Symptoms: Thoughts of /Suicide (denies) Abnormal Motor Activity Signs and Symptoms: Restlessness Judgement: Good DS: Summary Hospital Course Hospital Course: Admission to adult psychiatry for exacerbation of schizoaffective disorder, opiate and cocaine use disorder. Pt reportedly made statements that he was suicidal and having command auditory perceptual alterations telling him to commit suicide. Pt, upon admission, denies all symptoms, stating when these statements were made he was under the influence of narcotics. Pt declined to participate in the milieu. He declined a return to his base medications of Seroquel and Invega. He did accept Olanzapine, stated he found it helpful and asked to continue this upon discharge. Pt signed a three day notice. He continued to deny symptoms and is discharged with resources which he is not sure if he will utilize. He denied consultation for Methadone/Suboxone therapies. Status at Discharge Functional status at discharge: independent ambulation Overall status at discharge: patient is back to baseline Time Spent with Patient Time attestation: Total time managing care of this patient today ____ minutes. Time spent: Less than 30 minutes Discharge Plan Discharge Anticipated Discharge Date/Time: 10/06/23 12:00 Patient Disposition: Intermediate Discharge Diagnosis: Psychosis Cocaine Use Disorder Opiate Use Disorder Referrals: [facility] [Other] - 1 Week [facility] [Other] - 1 Day Physician,Nonstaff [Primary Care Provider] - 1 Week Discharge Medications: New multivitamin [Daily-Linden] Tablet 1 tab PO DAILY Qty: 30 0RF trazodone 50 mg Tablet 50 mg PO BEDTIME MRX1 PRN (Reason: Insomnia) Qty: 15 2RF nicotine (polacrilex) 2 mg Gum 4 mg buccal Q2H PRN (Reason: Nicotine Cravings) Qty: 100 0RF olanzapine 10 mg Tablet,Disintegrating 20 mg translingual BEDTIME Qty: 15 1RF folic acid 1 mg Tablet 1 mg PO DAILY Qty: 30 0RF thiamine mononitrate (vit B1) 100 mg Tablet 100 mg PO DAILY Qty: 30 0RF Continued benztropine 0.5 mg tablet 0.5 mg PO BID Qty: 30 1RF Discontinued Atarax 50 mg tablet 50 mg PO bupropion HCl 150 mg tablet sustained-release 12 hr 150 mg PO QAM Desyrel 50 mg tablet 50 mg PO Lamictal 25 mg 25 mg PO Wellbutrin SR Zyprexa ibuprofen 600 mg PO paliperidone 6 mg 6 mg PO quetiapine 200 mg 200 mg PO risperidone 3 mg tablet 3 mg PO Discharge Orders: Discharge Order (Routine); Ordered 10/05/23 Ordered By: Jennifer Crane Diet: Advance to usual diet Activity on Discharge: As tolerated Stand Alone Forms: Patient Portal Discharge page, Community Support Care Plan Goals: Mood and Behavioral Stabilization Work on Sobriety Health Concerns: Mood and Behavioral Stabilization Sobriety Plan of Treatment: Attend scheduled appointments Take medications as directed Call/Return as needed Assessment: Pt leaves on a three day notice of intent. Pt interviewed prior to discharge and found to be fully oriented and without SI/HI. Pt has insight and demonstrates good judgment in terms of wanting to pursue treatment. Pt is not in imminent risk of harm to self or others and has a safety plan that includes presenting to the closest ER or calling 911 if feeling unsafe. Pt has been observed closely by nursing and unit staff throughout admission. Pt has not engaged in any behaviors that suggest dangerousness to self or others and has demonstrated appropriate behaviors and impulse control. Discharge Date/Time: 10/06/23 10:27
== END 2023-10-06 10:27 | disposition home or self-care (01) | DRG 885 ==
PROVIDERS: Admitting Provider Psychiatry & Neurology Psychiatry; Visit Provider Clinical Nurse Specialist Psychiatric/Mental Health, Adult
DX: F29 Unspecified psychosis not due to a substance or known physiological condition (principal); R45.851 Suicidal ideations; F14.10 Cocaine abuse, uncomplicated; F11.90 Opioid use, unspecified, uncomplicated; F17.210 Nicotine dependence, cigarettes, uncomplicated; Z71.6 Tobacco abuse counseling; Z79.899 Other long term (current) drug therapy

== ENCOUNTER → 2023-09-30 20:56 | Outpatient (BNV) | payer OTHER, SELFPAY | PROVIDERS: Admitting Provider Psychiatry & Neurology Psychiatry; Visit Provider Student in an Organized Health Care Education/Training Program | DX: Z02.2 Encounter for examination for admission to residential institution (principal) | CPT/HCPCS: 99429 ==

== ENCOUNTER → 2023-09-30 20:56 | Outpatient (BNV) | payer OTHER, SELFPAY | PROVIDERS: Admitting Provider Psychiatry & Neurology Psychiatry; Visit Provider Psychiatry & Neurology Psychiatry | DX: F29 Unspecified psychosis not due to a substance or known physiological condition (principal); F14.10 Cocaine abuse, uncomplicated; F11.90 Opioid use, unspecified, uncomplicated | CPT/HCPCS: 90792; 99231; 99232; 99238 ==

== ENCOUNTER 2024-11-01 14:17 | Emergency (ER) | payer MEDICAID, SELFPAY ==
[2024-11-01 14:32] VITALS: BP 144/96; PULSE 104; O2SAT 95; BMI 40.7
[2024-11-01 15:06] LABS: Appearance Urine Clear; Color Urine Yellow; Glucose Urine UA Negative (Negative); Leukocyte Esterase Urine Negative (Negative); Nitrite Urine Negative (Negative); PH 5.5 (5.0-9.0); Specific Gravity - Urine 1.025 (1.005-1.025); UMIC TRIGGER UACC YES; Urine Blood Negative (Negative); Urine Ketones Trace mg/dL (Negative); Urine Protein 300 (3+) mg/dL (Neg-Trace)
--- NOTE | 2024-11-01 15:06 | ED_ITS ---
HPI - General Adult General Chief complaint: Psychiatric Symptoms Stated complaint: CRISIS EVAL,DEPRESSED,SI NO PLAN PER EMS Time Seen by Provider: 11/01/24 14:24 Source: patient Mode of arrival: EMS Limitations: no limitations History of Present Illness HPI narrative: This is a 34-year-old man with a past medical history of polysubstance use, schizoaffective who presents for evaluation of SI and requesting detox. Patient states I am feeling depressed . He states feeling tired a little in the way that he is tired of living like this way. He states I have SI . He articulates no suicidal plan. He initially states that he did dope yesterday to get high . He then states that he did it with an intention to overdose. He states he is homeless. He states drug use is what caused his homelessness after his mother some years ago. He states he has a brother and a sister, but state he is infrequently in touch with them. He states no alcohol use. He states no HI/AH/VH. He states no fever, cough, chest pain, dyspnea, trauma, headache, vision changes, GI or symptoms. He states taking no medications. Related Data Home Medications ?Medication ?Instructions ?Recorded ?Confirmed risperidone 1 mg tablet (Risperdal) 1 mg PO BEDTIME 11/01/24 11/01/24 Previous Rx's ?Medication ?Instructions ?Recorded benztropine 0.5 mg tablet 0.5 mg PO BID #30 tabs 10/05/23 folic acid 1 mg tablet 1 mg PO DAILY #30 tabs 10/05/23 multivitamin (Daily-Linden tablet) 1 tab PO DAILY #30 tabs 10/05/23 nicotine (polacrilex) 2 mg gum 4 mg buccal Q2H PRN Nicotine 10/05/23 Cravings #100 ea thiamine mononitrate (vit B1) 100 100 mg PO DAILY #30 tabs 10/05/23 mg tablet trazodone 50 mg tablet 50 mg PO BEDTIME MRX1 PRN Insomnia 10/05/23 #15 tabs olanzapine 20 mg disintegrating 20 mg PO BEDTIME #14 tabs 11/02/24 tablet (Zyprexa Zydis) olanzapine 20 mg disintegrating 20 mg PO BEDTIME #14 tabs 11/02/24 tablet (Zyprexa Zydis) Allergies Allergy/AdvReac Type Severity Reaction Status Date / Time azithromycin Allergy Unknown Verified 11/01/24 14:37 sulfamethoxazole Allergy Unknown Verified 11/01/24 14:37 [From Bactrim] trimethoprim [From Bactrim] Allergy Unknown Verified 11/01/24 14:37 Review of Systems 2 Review of Systems: ROS as per HPI [facility] Past Medical History Medical History (Updated 11/01/24 @ 16:28 by Gagandeep Jaime MD) Cocaine use disorder Opioid use disorder Psychosis No known health problems No known health problems Surgical History No history of previous surgery Social History Social History Household Members: Unknown / Unable to assess Housing: Homeless Do you presently have visiting nurse or other home services: No Patient Tobacco Use Status: Current everyday Tobacco user Tobacco use type: Cigarette e-Cigarette/Vaping Use: Never Used Second Hand Smoke Exposure: No Substance Use Type: Hallucinogens, Marijuana and Opiates Advance Directives: No Advance Directives Information Provided: Yes Do you have a plan to hurt others: No Plan service: No Sexual orientation: Unable to collect Physical Exam ED Vital Signs: Vital Signs - 24 hr 11/01/24 22:26 11/01/24 23:25 11/02/24 06:39 Temperature 97.8 F 98.6 F Pulse Rate 98 78 Respiratory Rate 18 18 20 Blood Pressure 132/84 143/93 H Pulse Oximetry 96 95 Oxygen Delivery Method Room Air Room Air BMI result Body Mass Index 40.7 Gen: NAD, AOx3 HEENT: NCAT, EOMI, normal conjunctiva CV: RRR Pulm: CTAB, no increased work of breathing GI: Soft, NTND, no rebound, guarding or rigidity Neuro: Grossly non focal Course Course Course Narrative: 02:18, 11/02/2024,Faustino Montes De Oca, There have been no acute issues during my shift. Patient will remain in physician observation until disposition. Home medications have been ordered. Reevaluation(s) Reevaluation #1: The patient was signed out to me at change of shift by the previous emergency physician. The patient has been seen by the care team. Arrangements has been made for him to go to a respite facility. The care team arranged for a Lyft taxi and he was discharged. Medications Administered Generic Name Dose Route Start Last Admin Trade Name Enrique PRN Reason Stop Dose Admin Benztropine Mesylate 0.5 mg 11/01/24 22:15 11/02/24 09:37 Benztropine Mesylate 0.5 Mg Tablet PO 0.5 mg BID ROSMERY Administration Folic Acid 1 mg 11/02/24 09:00 11/02/24 09:37 Folic Acid 1 Mg Tablet PO 1 mg DAILY ROSMERY Administration Multivitamins/Vitamin C 1 tab 11/02/24 09:00 11/02/24 09:37 Multivitamin Tablet PO 1 tab DAILY ROSMERY Administration Olanzapine 20 mg 11/01/24 22:15 11/01/24 22:25 Olanzapine Odt 10 Mg Tab.Rapdis TRANSLINGU 20 mg BEDTIME ROSMERY Administration Risperidone 1 mg 11/01/24 22:15 11/01/24 22:25 Risperidone 1 Mg Tablet PO 1 mg BEDTIME ROSMERY Administration Thiamine HCl 100 mg 11/02/24 09:00 11/02/24 09:37 Thiamine Hcl 100 Mg Tablet PO 100 mg DAILY ROSMERY Administration Trazodone HCl 50 mg 11/01/24 22:09 11/01/24 22:25 Trazodone Hcl 50 Mg Tablet PO 50 mg BEDTIME MRX1 PRN Administration Insomnia Medical Decision Making Medical Decision Making [facility] Narrative: Differential diagnosis includes, but is not limited toDepression, anxiety, substance use, suicide ideation. Patient is afebrile and hemodynamically stable on room air. Exam is benign and reassuring. Care is transitioned to the oncoming physician with disposition pending care team evaluation. Admission/Observation Consideration of admission/observation: Escalation of care including admission/observation considered Lab Data [facility] Lab Attestation statement: I reviewed the patient's lab results. Labs including CBC, metabolic panel, urinalysis, urine drug screen, ethanol/acetaminophen /salicylate level undetectable. 11/01/24 15:48 11/01/24 15:48 Labs: Lab Results 11/01/24 11/01/24 Range/Units 14:54 15:48 WBC 8.8 (4.8-10.8) X10*3/uL RBC 4.95 (4.60-5.80) X10*6/uL Hgb 14.5 (14.0-18.0) g/dl Hct 42.5 (42.0-52.0) % MCV 85.9 (80.0-98.0) fL MCH 29.3 (27.0-33.0) pg MCHC 34.1 (31.0-36.0) g/dl RDW 11.9 (11.0-16.0) % Plt Count 237 (160-400) X10*3/uL MPV 10.1 (9.4-12.4) fL Immature Gran % (Auto) 0.5 H (0.0-0.4) % Neut % (Auto) 62.1 (45-73) % Lymph % (Auto) 29.4 (20-40) % [place] % (Auto) 6.0 (2-11) % Eos % (Auto) 1.8 (0-4) % Baso % (Auto) 0.2 (0-2) % Lymph # (Auto) 2.6 (1.2-4.9) X10*3/uL [place] # (Auto) 0.5 (0.1-1.2) X10*3/uL Eos # (Auto) 0.2 (0.0-0.4) X10*3/uL Baso # (Auto) 0.0 (0.0-0.2) X10*3/uL Abs Immat Gran (auto) 0.04 H (0.00-0.03) X10*3/uL Absolute Neuts (auto) 5.5 (2.0-8.3) x10*3/uL Absolute Nucleated RBC 0.000 (0.0-0.012) X10*3/uL Nucleated RBC % (auto) 0.0 (0.0-0.2) /100WBC Sodium 139 (135-145) mmol/L Potassium 3.9 (3.3-5.1) mmol/L Chloride 107 (96-108) mmol/L Carbon Dioxide 26 (22-29) mmol/L Anion Gap 10 L (12-20) BUN 13 (9-16) mg/dL Creatinine 0.84 (0.5-1.4) mg/dL Estim Creat Clear Calc 153.6 Estimated GFR > 60 Random Glucose 130 H (60-115) mg/dL Calcium 9.2 (8.4-10.2) mg/dL Total Bilirubin 0.3 (0.0-1.0) mg/dL AST 23 (5-37) U/L ALT 37 (0-40) U/L Alkaline Phosphatase 57 (39-117) U/L Total Protein 7.6 (6.5-8.0) g/dL Albumin 4.1 (3.5-5.0) g/dL Urine Color Yellow Urine Appearance Clear Urine pH 5.5 (5.0-9.0) Ur Specific [place] 1.025 (1.005-1.025) Urine Protein 300 (3+) H (Neg-Trace) mg/dL Urine Glucose (UA) Negative (Negative) mg/dL Urine Ketones Trace (Negative) mg/dL Urine Blood Negative (Negative) Urine Nitrite Negative (Negative) Ur Leukocyte Esterase Negative (Negative) Urine RBC 0-2 (0-2) /HPF Urine WBC 0-5 (0-5) /HPF Ur Squamous Epith Cells 0-2 (0-2) /HPF Urine Bacteria None Seen (None Seen) Hyaline Casts 3-5 (0-2) /LPF Salicylates < 5.0 L (15-30) mg/dL Urine Opiates Screen Not Detected (Not Detect) Ur Buprenorphine Scrn Not Detected (Not Detect) ng/mL Ur Oxycodone Screen Not Detected (Not Detect) ng/mL Urine Methadone Screen Not Detected (Not Detect) ng/mL Urine Fentanyl Screen Not Detected (Not Detect) Acetaminophen < 3 (<30) mcg/mL Ur Barbiturates Screen Not Detected (Not Detect) Ur Phencyclidine Scrn Not Detected (Not Detect) Ur Amphetamines Screen Not Detected (Not Detect) U Benzodiazepines Scrn Not Detected (Not Detect) Urine Cocaine Screen Not Detected (Not Detect) U Marijuana (THC) Screen Not Detected (Not Detect) Ethyl Alcohol < 10 mg/dL Discharge Plan Discharge Clinical Impression: Depression, Substance use Patient Disposition: Xfer Other Transfer Details: Discharge to Respite Prescriptions: New olanzapine [Zyprexa Zydis] 20 mg tablet,disintegrating 20 mg PO BEDTIME Qty: 14 0RF olanzapine [Zyprexa Zydis] 20 mg tablet,disintegrating 20 mg PO BEDTIME Qty: 14 0RF No Action multivitamin [Daily-Linden] Tablet 1 tab PO DAILY Qty: 30 0RF trazodone 50 mg Tablet 50 mg PO BEDTIME MRX1 PRN (Reason: Insomnia) Qty: 15 2RF nicotine (polacrilex) 2 mg Gum 4 mg buccal Q2H PRN (Reason: Nicotine Cravings) Qty: 100 0RF folic acid 1 mg Tablet 1 mg PO DAILY Qty: 30 0RF thiamine mononitrate (vit B1) 100 mg Tablet 100 mg PO DAILY Qty: 30 0RF benztropine 0.5 mg tablet 0.5 mg PO BID Qty: 30 1RF risperidone [Risperdal] 1 mg tablet 1 mg PO BEDTIME Referrals: Physician,Unknown J [Primary Care Provider] - (Please follow-up as per care team) Interventions: [place]-Suicide Risk Severity Scale Last Done: 11/01/24 20:30 Print Language: Faroese
[2024-11-01 15:08] LABS: Bacteria Urine None Seen (None Seen); RBC Urine 0-2 /HPF (0-2); Squamous Epithelial Cell Urine 0-2 /HPF (0-2); WBC Urine 0-5 /HPF (0-5)
[2024-11-01 15:51] LABS: Amphetamine Screen Urine Not Detected (Not Detect); Barbiturates, Urine Not Detected (Not Detect); Benzodiazepines Screen Urine Not Detected (Not Detect); Buprenorphine Scr Not Detected (Not Detect); Cannabinoid Screen Urine Not Detected (Not Detect); Cocaine Screen Urine Not Detected (Not Detect); Fentanyl, urine Not Detected (Not Detect); Methadone Screen, Urine Not Detected (Not Detect); Opiate Screen Urine Not Detected (Not Detect); Oxycodone Screen Urine Not Detected (Not Detect); Phencyclidine Screen Urine Not Detected (Not Detect)
[2024-11-01 15:52] LABS: MANUAL DIFF FLAG NO
[2024-11-01 15:56] LABS: Basophils Percent Auto 0.2 % (0-2); Eosinophils Absolute Auto 0.2 X10*3/uL (0.0-0.4); Eosinophils Percent Auto 1.8 % (0-4); Hematocrit 42.5 % (42.0-52.0); Hemoglobin 14.5 g/dl (14.0-18.0); Imm Gran Abs Auto 0.04 X10*3/uL (0.00-0.03); Imm Gran Pct Auto 0.5 % (0.0-0.4); Lymphocytes Absolute Auto 2.6 X10*3/uL (1.2-4.9); Lymphocytes Percent Auto 29.4 % (20-40); Mean Corpuscular HGB Conc 34.1 g/dl (31.0-36.0); Mean Corpuscular Hemoglobin 29.3 pg (27.0-33.0); Mean Corpuscular Volume 85.9 fL (80.0-98.0); Mean Platelet Volume 10.1 fL (9.4-12.4); Monocytes Absolute Auto 0.5 X10*3/uL (0.1-1.2); Neutrophils Absolute Auto 5.5 x10*3/uL (2.0-8.3); Neutrophils Percent Auto 62.1 % (45-73); Platelet Count 237 X10*3/uL (160-400); Red Blood Count 4.95 X10*6/uL (4.60-5.80); Red Cell Distribution Width 11.9 % (11.0-16.0); White Blood Count 8.8 X10*3/uL (4.8-10.8)
[2024-11-01 16:21] LABS: Acetaminophen LAB < 3 mcg/mL (<30); Salicylate < 5.0 mg/dL (15-30)
[2024-11-01 16:25] LABS: Alanine Aminotransferase 37 U/L (0-40); Albumin Level 4.1 g/dL (3.5-5.0); Alkaline Phosphatase 57 U/L (39-117); Anion Gap 10 (12-20); Aspartate Amino Transferase 23 U/L (5-37); Bilirubin Total 0.3 mg/dL (0.0-1.0); Blood Urea Nitrogen 13 mg/dL (9-16); Calcium 9.2 mg/dL (8.4-10.2); Carbon Dioxide 26 mmol/L (22-29); Chloride 107 mmol/L (96-108); Creatinine Clr Calc Pharmacy 153.6; Estimated Glomerular Filt Rate > 60; Ethanol < 10 mg/dL; Glucose Random 130 mg/dL (60-115); Potassium 3.9 mmol/L (3.3-5.1); Sodium 139 mmol/L (135-145); Total Protein 7.6 g/dL (6.5-8.0)
--- OUTSIDE RECORDS SUMMARY | 2024-11-01 18:07 | XMS_ITS | Clinical Summary ---
Author Organization [facility] Address [address] [place] [address] Care Team Providers Care Sports Umpire Name Role Phone Jesu Hernandez MD Unavailable [phone] Jesu Hernandez MD Primary Care Provider [phone] Allergies Active Allergy Reactions Criticality Noted Date Comments Azithromycin Rash Low 02/08/2019 Sulfamethoxazole-Trimethoprim Hives 2022 Medications * This document contains information received from the source organization and may not represent a complete record from that organization. hydrOXYzine HCL (ATARAX) 50 MG tablet Take 1 tablet (50 mg total) by mouth 3 times a day as needed for anxiety. 30 tablet 1 4 Active propranoloL (INDERAL) 40 MG tablet Take 1 tablet (40 mg total) by mouth at bedtime. 14 tablet 1 4 Active melatonin 5 mg Tab Take 1 tablet (5 mg total) by mouth at bedtime as needed. 3 Active FLUoxetine (PROzac) 20 MG capsule Take 3 capsules (60 mg total) by mouth daily. 14 capsule 1 5 Active risperiDONE (RisperDAL) 4 MG tablet Take 1 tablet (4 mg total) by mouth at bedtime. 30 tablet 5 Active benztropine (COGENTIN) 0.5 MG tablet Take 1 tablet (0.5 mg total) by mouth at bedtime for 30 days. 30 tablet 5 Active nicotine polacrilex (NICORETTE) 4 mg lzmn lozenge Apply 1 lozenge (4 mg total) to the mouth or throat every 2 hours as needed for smoking cessation (withdrawal/to bacco craving). 10 each 5 Active Active Problems Problem Noted Date Diagnosed Date Depression, unspecified depression type 09/12/19 25 History of gout 09/06/2024 Schizoaffective disorder, bipolar type 4 Morbid obesity 12/02/2023 Polysubstance dependence 12/02/2023 Bipolar 1 disorder, depressed, moderate 12/01/19 24 Depressive disorder 01/02/2022 Bipolar affective disorder, current episode mixe d 11/24/2021 Manic behavior 11/17/2021 History of MRSA infection 10/07/2021 Polysubstance dependence inc luding opioid type drug with complication, episodic abuse 09/02/2021 Essential hypertension 07/31/2021 Morbid obesity 07/31/2021 Hepatic steatosis 07/31/2021 Polysubstance dependence 07/31/2021 Nicotine dependence 07/31/2021 Chronic hepatitis C without hepatic coma 022 Schizoaffective disorder, ch ronic condition with acute exacerbation 07/28/2021 Opioid abuse with opioid-ind uced psychotic disorder with hallucination 07/28/2021 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 New resident at [facility] residential program. Most recent use of opioids and cocaine Feb 2021. History of multiple overdoses with receipt of naloxone. Concurrent mental illness with pt reported diagnoses of Anxiety, Depression and Schizophrenia for which he is prescribed 10mg Abilify and unknown sertraline dose through his residential programming. Last Assessment & Plan: Pt appropriate for continued treatment with buprenorphine-naloxone in OBAT setting. Plan - Continue residential programming at [facility], which includes peer support, meetings, psychiatry services. - Initiate OBAT protocol with [facility] monitoring, support, recovery services and provider visits. - Continue bupe/nlx at 16mg daily dose. New Rx provided today. - This provider to bridge care until pt able to see MD Hernandez on 06/12/2021 JOVANNY (obstructive sleep apnea) 09/03/2020 Overview (06/02/2023): Last Assessment & Plan: Results of recent sleep study reviewed. Followed by pulmonary, patient reports does not have a CPAP machine. Risks of untreated JOVANNY reviewed Morbid obesity with BMI of 45.0-49.9, adult 10/2019 Overview (06/02/2023): Last Assessment & Plan: BMI results, goals and obesity risks reviewed. Has JOVANNY, not currently yet on CPAP Complex care coordination 03/30/2018 Acute idiopathic gout of foot 12/05/2017 Overview (06/02/2023): Last Assessment & Plan: Patient presents to office for paperwork for social security for ID purposes and follow up of gout. No complaints of pain. Unclear of what exactly is needed and ?if needs work clearance. Patient has not been seen in office in some time. Also with recent ED visit. Last ED note: 32M presents w/ increasing depression, seeking [facility] bed search. On exam, patient afebrile, vital signs stable, no acute distress. He reports ongoing gout flares, patient is treated with colchicine when ever he is here in the ED. No swelling, redness or warmth of his bilateral elbow joints, knee joints or ankle joints. Patient has been afebrile, does not have a white blood cell count, low concern for septic joints. Ordered serum uric acid level which was elevated. Treated with colchicine, Motrin, Tylenol. Urine tox came back positive for fentanyl and cocaine. COWS ordered. Patient has been off medication so we will hold off from ordering for now Patient is medically cleared for psychiatric evaluation. He will be placed in observation. Consult in for psychiatry. His disposition is pending psychiatry. Patient became beligerant and agitated during visit. Recommended ED evaluation but declined. Unclear if patient was under the influence. He was then seen with Behavioral health pitching coach.Continued with escalating agitation and walked out of exam room. 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 Last used last week Risks of continued drug use reviewed, followed by mental health, on Antabuse, Invega, Suboxone Cocaine abuse 12/05/2017 Overview (06/02/2023): Last Assessment & Plan: Continues to use sporadically. Has gymnastic coach, on Antabuse, Invega, Suboxone Counseled risks of continued cocaine abuse Opioid use disorder 12/05/2017 Overview (06/02/2023): Last Assessment & Plan: Maintained sobriety x 2 weeks - resume Zyprexa for AH Last Assessment & Plan: Notes he has not used Opioids recently.Discussed about his last tox screen in the ER which was positive for Fentanyl and that he would benefit from medications if needed. He appears hesitant at this time noting he just wants his DTA form filled out --Pt knows to contact the clinic if he reconsiders mOUD Elevated BP without diagnosis of hypertension Overview (06/02/2023): Last Assessment & Plan: Remains elevated. May be related to weight gain, high salt intake will check again in 1 month and if still elevated will start meds. Check TSH Balanoposthitis 08/09/2013 Current smoker 09/14/2012 Overview (06/02/2023): Smoker Last Assessment & Plan: Smoking cessation advised Nicotine patch Behavior concern 02/29/2008 Overview (06/02/2023): Problem behavior Resolved Problems Problem Noted Date Diagnosed Date Resolved Date Right elbow pain 07/31/2021 10/07/2021 Sore throat 07/31/2021 10/07/2021 Abscess of left arm 03/05/2021 12/01/19 Atrial fibrillation 06/23/2019 12/01/19 24 Overview (06/02/2023): Last Assessment & Plan: Has only had recurrences when he uses cocaine/amphetamines. Currently clinically appears in sinus rhythm On metoprolol Avoidance of substance abuse reviewed CHADS2 score 0 Was referred to cardiology but never followed up Abnormal weight gain 05/17/2017 024 Overview (06/02/2023): Last Assessment & Plan: Has gained 25 pounds over the past year. BMI results, goals and obesity risks discussed. Diet reviewed and very high on fast food, junk food Need for regular exercise, portion control, heart healthy diet Refer to metallurgical analyst. Chlamydial infection 06/07/2014 024 Overview (06/02/2023): Chlamydial infection; x2 in past Last Assessment & Plan: Completed abx at . NO further sxs. Repeat for BEN and other std screen Safe sexual practices discussed. Encounters * This document contains information received from the source organization and may not represent a complete record from that organization. Date Type Department Care Team Description 10/05/2024 9:43 AM EDT - 10/05/2024 5:27 PM EDT Emergency [facility] [address] [place] [phone] Bipolar 1 disorder, depressed, moderate (HCC) [F31.32] (Primary Dx); Suicidal ideation; Heroin abuse (HCC) Discharge Disposition: Transfer to Acute Care Hospital 09/12/2024 2:19 PM EST - 09/12/2024 10:27 PM EST Emergency [facility] [address] [place] [phone] Kulwinder Parrish MD Suicidal ideation (Primary Dx); Opioid abuse (HCC); Cocaine abuse (HCC); Current episode of major depressive disorder without prior episode, unspecified depression episode severity [F32.9] Discharge Disposition: [facility] 09/06/2024 11:17 AM EST - 09/06/2024 11:59 PM EST Hospital Encounter [facility] [address] [place] [address] Simran Vargas CNS Azhar, Naila, MD Discharge Disposition: Home or Self Care 09/05/2024 2:39 PM EST - 09/06/2024 8:49 AM [facility] Emergency [facility] [address] [place] [phone] Alma Delia Judd MD Suicidal ideation (Primary Dx) Discharge Disposition: [facility] 09/05/2024 Travel 08/25/2024 2:32 PM EST - 08/26/2024 1:05 PM EST Emergency [facility] [address] [place] [phone] Alma Delia Judd MD Sinclair, Linda, MD Raho, Vittorio J, MD Schizoaffective disorder, bipolar type (HCC) [F25.0] (Primary Dx) Discharge Disposition: [facility] from Last 3 Months Immunizations Name Administration Dates Next Due COVID-19 Vaccine (iLinc) ? Original Formulation (prior to Jul 2021) 07/20/2021 COVID-19 Vaccine - (GeoPage / Sharewave AND Sharewave) 04/08/2021 DTaP, Unspecified 04/10/1996, 3,12/11/1992,01/16,1991,1991 HPV Quadrivalent 07/05/2011,09/18/2010 Hep B, Unspecified 06/19/1996,03/25/1996, 995 Influenza Vaccine - STANDARD - MDV (FLUZONE/AFLURIA) 05/07/2014,09/14/2012 Influenza, Unspecified 07/05/2011,2009,07/05/2007,05/25,09/01/2005,04/30/2004,06/08/2003 ,05/09/2002,05/06/2001,06/06/2000,12/1998,07/07/1998,05/17/1998 MMR Live vaccine 03/25/1996,06/15/1993 Meningococcal Quadrivalent V accine (MENACTRA) 02/29/2008 Polio, Unspecified 01/17/2001, 6,06/15/1993,12/11,1991,1991 Td With Preservatives 12/31/2013 Td, Unspecified 08/28/2002 Tdap Vaccine (BOOSTRIX/ADACEL) 02/29/2008 Social History Tobacco Use Types Packs/Day Years Used Date Smoking Tobacco: Some Days Cigarettes Smokeless Tobacco: Never Tobacco Cessation:Ready to Q uit: Not Asked; Counseling Given: Not Answered Alcohol Use Standard Drinks/Week Comments Not Currently 0 (1 standard drink = 0.6 oz pure alcohol) Rarely; last drank about [address] [facility] Utilities Answer Date Recorded In the past 12 months has [employer], oil, or water [employer]or[employer] threatened to shut off services in your home? No 09/13/2024 Humiliation, Afraid, Rape, and Kick questionnair e Answer Date Recorded Within the last year, have y ou been afraid of your partner or ex-partner? No 09/13/2024 Emotionally Abused Not on file 09/13/2024 Physically Abused Not on file 09/13/2024 Sexually Abused Not on file 09/13/2024 Overall Financial Resource Strain (CARDIA) Answe r Date Recorded How hard is it for you to pa y for the very basics like food, housing, medical care, and heating? Very hard 09/13/2024 Hunger Vital Sign Answer Date Recorded Within the past 12 months, y ou worried that your food would run out before you got the money to buy more. Often true 09/13/19 25 Ran Out of Food in the Last Year Not on file 09/13/2024 PRAPARE - Transportation Answer Date Re corded In the past 12 months, has l ack of transportation kept you from medical appointments or from getting medications? Yes 08/26 In the past 12 months, has l ack of transportation kept you from meetings, work, or from getting things needed for daily living? Yes 09/13/2024 Housing Stability Vital Sign Answer Kaushal e Recorded In the last 12 months, was t here a time when you were not able to pay the mortgage or rent on time? Yes 09/13/2024 Number of Times Moved in the Last Year Not on fi le 09/13/2024 At any time in the past 12 m [facility], were you homeless or living in a chcf (including now)? Yes 09/13/2024 Food Insecurity Answer Date Recorded Within the past 12 months, y ou worried that your food would run out before you got the money to buy more. Often true 09/13/19 25 Ran Out of Food in the Last Year Not on file 09/13/2024 Intimate Partner Violence Answer Date R ecorded Emotionally Abused Not on file 09/13/2024 Within the last year, have y ou been afraid of your partner or ex-partner? No 09/13/2024 Physically Abused Not on file 09/13/2024 Sexually Abused Not on file 09/13/2024 Housing Stability Answer Date Recorded Unstable Housing in the Last Year Not on file 09/13/2024 In the last 12 months, was t here a time when you were not able to pay the mortgage or rent on time? Yes 09/13/2024 [address] Lived in the Last Year Not on f ile 09/13/2024 AUDIT C Answer Date Recorded How often have you had a dri nk containing alcohol, in the past year? 1 09/12/2024 How many standard drinks con taining alcohol have you had on a typical day when you are drinking, in the past year? 00 0 09/12/2024 How often have you had six o r more drinks on one occasion, in the past year? 1 09/12/2024 Education Answer Date Recorded What is the highest level of school you have completed or the highest degree you have received? Some college, no degree 07/04/2024 Sex and Gender Information Value Date Recorded Sex Assigned at Male 02/08/2019 6:41 AM EDT Legal Sex Male 4:53 PM EST Gender Identity Male 02/08/2019 6:41 AM EDT Sexual Orientation Straight 07/04/2024 9: 28 PM EST Last Filed Vital Signs Vital Sign Reading Time Taken Comments Blood Pressure 158/94 10/05/2024 5:10 PM EDT Pulse 102 10/05/2024 5:10 PM EDT Temperature 36.6 ??C (97.8 ??F) 10/05/2024 5:10 PM ED T Respiratory Rate 18 10/05/2024 5:10 PM EDT Oxygen Saturation 95% 10/05/2024 5:10 PM EDT Inhaled Oxygen Concentration - - Weight 147 kg (325 lb) 10/05/2024 9:51 AM EDT Height 180.3 cm (5' 11 ) 10/05/2024 9:51 AM EDT Body Mass Index 45.33 10/05/2024 9:51 AM EDT Plan of Treatment Health Maintenance Due Date Last Done Comments Depression Screening 1995 Pneumococcal Vaccine: Pediat rics (0 to 5 Years) and At-Risk Patients (6 to 64 Years) (1 of 2 - PCV) 2010 DTaP,Tdap,and Td Vaccines (9 - Td or Tdap) 01/01/2024 12/31/2013, 02/29/2008, 08/28/2002, Additional history exists COVID-19 Vaccine (3 - 2023-2 5 season) 2024 07/20/2021, 04/08/2021 Influenza Vaccine (Season Ended) 2025 05/07/2014, 09/14/2012, 07/05/2011, Additional history exists Blood Pressure 10/05/2025 10/05/2024 Meningococcal Vaccines Completed 02/29/2008 Hepatitis C Screening Completed 01/28/2023, 022 Procedures Procedure Name Priority Date/Time Associated Diagnosis Comments DRUG SCREEN, URINE STAT 10/05/2024 12 :55 PM EDT ECG 12-LEAD STAT 10/05/2024 12:45 PM EDT CBC AND DIFFERENTIAL STAT 10/05/2024 10:22 AM EDT CBC AND DIFFERENTIAL STAT 10/05/2024 10:22 AM EDT MAGNESIUM STAT 10/05/2024 10:22 AM EDT BASIC METABOLIC PANEL STAT 10/05/2024 10:22 AM EDT DRUG SCREEN, URINE STAT 09/12/2024 5: 54 PM EST ECG 12-LEAD STAT 09/12/2024 5:01 PM EST CORONAVIRUS SARS-COV-2 AND INFLUENZA A/B STAT 09/12/2024 4:47 PM EST ECG 12-LEAD Routine 09/06/2024 11:17 AM EST Heart block CORONAVIRUS SARS-COV-2 AND INFLUENZA A/B STAT 09/06/2024 12:04 AM EST DRUG SCREEN, URINE STAT 09/05/2024 9: 22 PM EST DRUG SCREEN, URINE STAT 08/25/2024 4: 29 PM EST ECG 12-LEAD STAT 08/25/2024 3:08 PM EST from Last 3 Months Results * Drug Screen, Urine (10/05/2024 12:55 PM EDT) Only the most recent of4 resultswithin the time period is included. 6-Aceytlmorphine Screen, Urine Negative Negative 10/05/2024 1:52 PM EDT [facility] Comment:Add on order [id number] Opiates and Oxycodone, Urine, Confirmation, if confirmation desired. Amphetamines Screen, Urine Negative Negative 10/05/2024 1:52 PM EDT [facility] Comment: Screen for Amphetamine, Metamphetamine or other Amphetamine-like compounds. Add-on order [id number] Amphetamine, Urine, Confirmation if confirmation desired. Barbiturates Screen, Urine Negative Negative 10/05/2024 1:52 PM EDT [facility] Comment:Add-on order [id number] Barbiturate, Urine, Confirmation if confirmation desired. Benzodiazepine Screen, Urine Negative Negative 10/05/2024 1:52 PM EDT [facility] Comment: Add-on order [id number] Benzodiazepine, Urine, Confirmation if confirmation desired. Buprenorphine Screen, Urine Negative Negative 10/05/2024 1:52 PM EDT [facility] Comment:Add-on order [id number] Buprenorphine, Urine, Confirmation if confirmation desired. Cannabinoids Screen, Urine Negative Negative 10/05/2024 1:52 PM EDT [facility] Comment:Add-on order [id number] Cannabinoids, Urine, if confirmation desired. Cocaine Metabolite Screen, Urine Negative Negative 10/05/2024 1:52 PM EDT [facility] Comment:Add-on order [id number] Cocaine, Urine, Confirmation if confirmation desired. Ethanol Screen, Urine Negative Negative 10/05/2024 1:52 PM EDT [facility] Fentanyl Screen, Urine Negative Negative 10/05/2024 1:52 PM EDT [facility] Comment:Add-on order [id number] Fentanyl Confirmation, Urine, if confirmation desired. Methadone Screen, Urine Negative Negative 10/05/2024 1:52 PM EDT [facility] Comment:Add order [id number] Me thadone, Urine, Confirmation if confirmation desired. Opiates Screen, Urine Negative Negative 10/05/2024 1:52 PM EDT [facility] Comment: Screen for Morphine, Codeine, Hyrdocodone, Hydromorphone, or other Morphine- related opiates. Add on order [id number] Opiates and Oxycodone, Urine, Confirmation if confirmation desired. Oxycodone Screen, Urine Negative Negative 10/05/2024 1:52 PM EDT [facility] Comment:Add-on order [id number] Opiates and Oxycodone, Urine, Confirmation if confirmation desired. Tramadol Screen, Urine Negative Negative 10/05/2024 1:52 PM EDT [facility] Comment:Add-on order [id number] Tramadol Confirmation, Urine, if confirmation desired. Creatinine, Mahin Urine 77.0 >=15.0 mg/dL 10/05/2024 1:52 PM EDT [facility] Urine URINE SPECIMEN / Unknown Collection / Unknown 10/05/2024 12:55 PM EDT 10/05/2024 1:04 PM EDT Narrative [facility] - 10/05/2024 1:52 PM EDT These tests are for screening purposes only and should only be used for medical purposes. ??The cutoff concentrations for determining a positive result are as follows: 6-Acetylmorphine ?10 ng/mL 6-acetylmorphine Amphetamines ?1000 ng/mL d-methamphetamine Barbiturates ?200 ng/mL secobarbital Benzodiazepines ?200 ng/mL nordiazepam Buprenorphine ?5 ng/mL norbuprenorphine Cannabinoids ?50 ng/mL COOH-THC Cocaine ?300 ng/mL benzoylecgonine Ethanol ? 20 mg/dL ethanol Fentanyl ?5 ng/mL norfentanyl Methadone ?300 ng/mL methadone Opiates ? 300 ng/mL morphine Oxycodone ? 100 ng/mL oxycodone Tramadol ?200 ng/mL tramadol False negative and false positive results may occur due to cross-reactivity, patient medications or sample adulteration. ??If the validity of these results is uncertain, confirmatory testing can be done upon specific request. us Joe WYNN URINE ORDERABLES Final Result [facility] [address] [place] [address] * ECG 12 lead, to be obtained, other indication (10/05/2024 12:45 PM EDT) Only the most recent of4 resultswithin the time period is included. [facility] Ventricular Heart Rate 99 BPM EKG [facility] Atrial Heart Rate [address] Interval 160 ms EKG [facility] QRSD Interval 98 ms EKG [facility] QT Interval 366 ms EKG [facility] QTC Interval 469 ms EKG [facility] P [place] 78 degrees EKG [facility] R [place] 88 degrees EKG [facility]USE T Wave [place] 59 degrees EKG [facility] 10/05/2024 12:3 4 PM EDT 10/05/2024 1:25 PM EDT Narrative [facility] - 10/05/2024 1:25 PM EDT Normal sinus rhythm Normal ECG When compared with ECG of 12-SEP-2024, Right axis deviation is no longer present Early repolarization pattern is no longer present Confirmed by Tommie Moreno ([id number]) on 10/05/2024 1:25:02 PM Procedure Note Tommie Moreno MD - 10/05/2024 Normal sinus rhythm Normal ECG When compared with ECG of 12-SEP-2024, Right axis deviation is no longer present Early repolarization pattern is no longer present Confirmed by Tommie Moreno ([id number]) on 10/05/2024 1:25:02 PM Joe WYNN ECG ORDERABLES Final Result Performing Organization Address City/State/[facility] Co de Phone Number EKG [facility] [address] [place] [phone] * (ABNORMAL) CBC and Differential (10/05/2024 10:22 AM EDT) Pathologist [facility] WBC 13.05(H) 4.00 - 11.00 K/uL 10/05/2024 10:39 AM EDT [facility] RBC 4.43 4.10 - 5.60 M/uL 10/05/2024 10:39 AM EDT [facility] Hemoglobin 13.4 12.7 - 16.7 g/dL 10/05/2024 10:39 AM EDT [facility] Hematocrit 41.4 38.1 - 50.1 % 10/05/2024 10:39 AM EDT [facility] MCH 30.2 23.0 - 37.0 pg 10/05/2024 10:39 AM [facility] MCHC 32.4 29.0 - 38.0 g/dL 10/05/2024 10:39 AM [facility] MCV 94 82 - 98 fL 10/05/2024 10:39 AM [facility] RDW 12.2 11.5 - 14.5 % 10/05/2024 10:39 AM [facility] Platelet Count 211 150 - 450 K/uL 10/05/2024 10:39 AM [facility] MPV 10.5 6.0 - 14.0 fL 10/05/2024 10:39 AM [facility] Neutrophil 63.0 % 10/05/2024 10:39 AM [facility] Lymphocyte 24.7 % 10/05/2024 10:39 AM [facility] Monocyte 8.7 % 10/05/2024 10:39 AM [facility] Eosinophil 2.1 % 10/05/2024 10:39 AM [facility] Basophil 0.5 % 10/05/2024 10:39 AM [facility] Immature Granulocyte (Marydel, Myelo, Promyelocyte) 1.0 % 10/05/2024 10:39 AM [facility] Absolute Neutrophil Count 8.23(H) 1.50 - 7.70 K/uL 10/05/2024 10:39 AM [facility] Absolute Immature Granulocyte (Marydel, Myelo, Promyelocyte) 0.13(H) 0.00 - 0.09 K/uL 10/05/2024 10:39 AM [facility] Absolute Lymphocyte Count 3.22 1.50 - 4.00 K/uL 10/05/2024 10:39 AM [facility] Absolute Monocyte Count 1.14 0.16 - 1.26 K/uL 10/05/2024 10:39 AM [facility] Absolute Eosinophil Count 0.27 0.15 - 0.30 K/uL 10/05/2024 10:39 AM [facility] Absolute Basophil Count 0.06 0.00 - 0.21 K/uL 10/05/2024 10:39 AM [facility] Blood PERIPHERAL BLOOD SPECIMEN / Unknown Venipuncture / Unknown 10/05/2024 10:22 AM EDT 10/05/2024 10:26 AM EDT Joe WYNN LAB BLOOD ORDERABLES Final Resu lt Performing Organization Address [facility]/ZIP Co de Phone Number [facility] [address] [place] [address] * Magnesium (10/05/2024 10:22 AM EDT) Magnesium, Blood 1.8 1.6 - 2.6 mg/dL 10/05/2024 11:33 AM EDT [facility] Blood PERIPHERAL BLOOD SPECIMEN / Unknown Venipuncture / Unknown 10/05/2024 10:22 AM EDT 10/05/2024 10:26 AM EDT Joe Montoya [place] LAB BLOOD ORDERABLES Final Resu lt Performing Organization Address [facility] de Phone Number [facility] [address] [place] [address] * Basic Metabolic Panel (10/05/2024 10:22 AM EDT) Sodium 142 135 - 146 mmol/L 10/05/2024 11:33 AM EDT [facility] Potassium 4.2 3.4 - 5.2 mmol/L 10/05/2024 11:33 AM EDT [facility] Comment:Samples tested in se rum may exhibit a higher potassium value than those tested on plasma. Our current range is based on plasma testing. Chloride 105 98 - 110 mmol/L 10/05/2024 11:33 AM EDT [facility] Total CO2/Bicarbonat e 25 24 - 32 mmol/L 10/05/2024 11:33 AM EDT [facility] Anion Gap 13 2 - 15 mmol/L 10/05/2024 11:33 AM EDT [facility] BUN 8 7 - 24 mg/dL 10/05/2024 11:33 AM EDT [facility] Creatinine, Blood 1.10 0.60 - 1.30 mg/dL 10/05/2024 11:33 AM EDT [facility] Glucose, Blood 92 50 - 100 mg/dL 10/05/2024 11:33 AM EDT [facility] Calcium 8.9 8.5 - 10.5 mg/dL 10/05/2024 11:33 AM EDT [facility] Estimated GFR(CKD-EPI) 88 >=60 mL/min/BSA 10/05/2024 11:33 AM EDT [facility] Blood PERIPHERAL BLOOD SPECIMEN / Unknown Venipuncture / Unknown 10/05/2024 10:22 AM EDT 10/05/2024 10:26 AM EDT Joe [facility] BLOOD ORDERABLES Final Resu lt [facility] [address] [place] [address] * Coronavirus SARS-CoV-2 and Influenza A/B (09/12/2024 4:47 PM EST) Only the most recent of2 resultswithin the time period is included. Coronavirus SARS-CoV-2 Not Detected Not Detected MICHAEL JULEE 09/12/2024 6:08 PM EST [facility] Influenza A Not Detected Not Detected MICHAEL JULEE 09/12/2024 6:08 PM EST [facility] Comment: A negative test does not rule out infection with an influenza virus. Influenza B Not Detected Not Detected MICHAEL JULEE 09/12/2024 6:08 PM EST [facility] Comment:A negative test does not rule out infection with an influenza virus. xNasopharyngeal NASOPHARYNGEAL SWAB / Unknown Collection / Unknown 09/12/2024 4:47 PM EST 09/12/2024 5:44 PM EST Narrative [facility] - 09/12/2024 6:08 PM EST Test performed using the Yanira michael JULEE CoV-2 & Influenza RT-PCR assay, which has received emergency use authorization (EUA) by the U.S. Food and Drug Administration. Test performance has been verified by the [facility]. A Negative test result means that SARS- CoV-2 RNA was not present in the specimen above the limit of detection. A negative result does not rule out the possibility of COVID-19 and should not be used as the sole basis for treatment or patient management decisions. ??If COVID-19 is still suspected, based on exposure history together with other clinical findings, re-testing should be considered in consultation with public health authorities. Laboratory test results should always be considered in the context of clinical observations and epidemiological data in making a final diagnosis and patient management decisions. Fact sheet for providers: https://www.fda.gov/media/084855/download Fact sheet for patients: https://www.fda.gov/media/034470/download Method: Real time polymerase chain reaction Kulwinder Parrish MD BODY FLUIDS AND STOOLS [place] PATIÑO Final Result [facility] [address] [place] [address] from Last 3 Months Insurance Collect.it [facility] Advance Directives * Full Code (Latest Code Status on File) Date Activated Date Inactivated Comments 09/12/2024 11:53 PM 10/05/2024 9:42 AM Question Answer Comments Discussed with/per: Not Discussed Reason: recent suicidality * Full Code Date Activated Date Inactivated Comments 09/06/2024 10:52 AM 09/12/2024 2:18 PM Question Answer Comments Discussed with/per: Patient * Full Code Date Activated Date Inactivated Comments 07/04/2024 8:42 PM 07/17/2024 9:54 PM Question Answer Comments Discussed with/per: Not 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
--- NOTE | 2024-11-01 19:29 | PC.NURSE ---
pt strongly verbalized he does not want an EKG at this time
--- NOTE | 2024-11-01 19:44 | MHC.CARE ---
Pt evaluated by the CARE Team and is an [facility] bedsearch. Pt referred to [facility]-- Patricia at [facility] confirms the referral was received and will be reviewed. CARE Team to follow-up on the status of this referral.
[2024-11-01] MEDS: traZODone HCL 50 MG TABLET PO (22:25)
[2024-11-01] MEDS: risperiDONE 1 MG TABLET PO (22:25)
[2024-11-01] MEDS: Benztropine Mesylate 0.5 MG TABLET PO (22:25)
[2024-11-01] MEDS: OLANZapine ODT 10 MG TAB.RAPDIS 20 MG TRANSLINGU (22:25)
[2024-11-01 22:26] VITALS: BP 132/84; PULSE 98; RESP 18; TEMP 36.6; O2SAT 96
[2024-11-01 23:25] VITALS: RESP 18
[2024-11-02 06:39] VITALS: BP 143/93; PULSE 78; RESP 20; TEMP 37; O2SAT 95
[2024-11-02] MEDS: Benztropine Mesylate 0.5 MG TABLET PO (09:37)
[2024-11-02] MEDS: Thiamine HCL 100 MG TABLET PO (09:37)
[2024-11-02] MEDS: Multivitamin TABLET 1 TAB PO (09:37)
[2024-11-02] MEDS: Folic Acid 1 MG TABLET PO (09:37)
--- NOTE | 2024-11-02 09:46 | PC.NURSE ---
PT MARIANNA TO REFUSE EKG.
--- NOTE | 2024-11-02 16:00 | PHA.MEDREC ---
Pharmacy Consult ? Medication Reconciliation Pharmacy has reviewed the medication reconciliation completed done by nursing, utilizing claims from [employer]. No claims for benztropine, discussed this with the nurse taking care of him. RN states this was his dose from [facility]bin.
== END 2024-11-02 17:03 | disposition other institution (70) ==
PROVIDERS: Emergency Medicine; Emergency Provider Emergency Medicine
DX: R45.851 Suicidal ideations (principal); F33.1 Major depressive disorder, recurrent, moderate; F14.90 Cocaine use, unspecified, uncomplicated; F17.210 Nicotine dependence, cigarettes, uncomplicated; Z51.81 Encounter for therapeutic drug level monitoring; Z79.899 Other long term (current) drug therapy
CPT/HCPCS: 36415; 80053; 80143; 80179; 80307; 81001; 85025; 99284; S9485